=== PATIENT | female | born 1955 | race Hispanic/Latino ===

== ENCOUNTER 2020-06-08 08:14 | Emergency (ER) | payer OTHER, SELFPAY ==
[2020-06-08 08:17] VITALS: BP 147/84; PULSE 80; RESP 18; TEMP 36.3; O2SAT 96
--- NOTE | 2020-06-08 09:50 | ED.GENADULT ---
HPI - General Adult General Chief complaint: Back Pain/Injury Stated complaint: Back Pain x1 week Time Seen by Provider: 06/08/20 09:05 Related Data Home Medications Medication Instructions Recorded Confirmed sertraline 25 mg PO 06/08/20 Allergies Allergy/AdvReac Type Severity Reaction Status Date / Time No Known Allergies Allergy Verified 06/08/20 08:21 Course Vital Signs Vital signs: Vital Signs Temperature 36.3 C L 06/08/20 08:17 Pulse Rate 80 06/08/20 08:17 Respiratory Rate 18 06/08/20 08:17 Blood Pressure 147/84 H 06/08/20 08:17 Pulse Oximetry 96 06/08/20 08:17 Temperature 36.3 C L 06/08/20 08:17 Pulse Rate 80 06/08/20 08:17 Respiratory Rate 18 06/08/20 08:17 Blood Pressure 147/84 H 06/08/20 08:17 Pulse Oximetry 96 06/08/20 08:17 Medical Decision Making Vital Signs Vital Signs: Vital Signs Temperature 36.3 C L 06/08/20 08:17 Pulse Rate 80 06/08/20 08:17 Respiratory Rate 18 06/08/20 08:17 Blood Pressure 147/84 H 06/08/20 08:17 Pulse Oximetry 96 06/08/20 08:17 Temperature 36.3 C L 06/08/20 08:17 Pulse Rate 80 06/08/20 08:17 Respiratory Rate 18 06/08/20 08:17 Blood Pressure 147/84 H 06/08/20 08:17 Pulse Oximetry 96 06/08/20 08:17 Discharge Plan Discharge Clinical Impression: Herpes zoster Patient Disposition: Home, Self-Care Condition: Stable Instructions: Antibiotic Form, Shingles (ED) Prescriptions: New famciclovir 500 mg tablet 500 mg PO Q12H Qty: 14 RF: 0 lidocaine 5 % adhesive patch,medicated 1 patch topical DAILY Qty: 15 RF: 0 hydrocodone-acetaminophen [[place]] 5-325 mg tablet 1 tablet PO Q8H PRN (Reason: pain) Qty: 14 RF: 0 No Action sertraline 25 mg tablet 25 mg PO RF: 0 Follow-up/Referrals: Efren Johnson MD [Primary Care Provider] - Time of Disposition: 09:54
--- NOTE | 2020-06-08 09:54 | ED.GENADULT ---
HPI - General Adult General Chief complaint: Back Pain/Injury Stated complaint: Back Pain x1 week Time Seen by Provider: 06/08/20 09:05 Source: patient Mode of arrival: ambulatory Limitations: no limitations History of Present Illness HPI narrative: 65-year-old with no major medical problems here with complaints of right-sided back and chest pain. Patient states that started approximately 3 weeks ago been taking pain medication and muscle relaxer however she noticed erythematous rash on the back and front of her chest below the breast for past 1 day. She states that she never had this kind of pain in the past. Denies any fever or chills. No history of cough. Onset (ago): week(s) (3) Location: chest (right lower costal margin) Radiation: other (to mid chest) Severity: moderate Quality: sharp and constant Relieving factors: none Exacerbating factors: none Associated symptoms: denies other symptoms Related Data Home Medications Medication Instructions Recorded Confirmed sertraline 25 mg PO 06/08/20 Allergies Allergy/AdvReac Type Severity Reaction Status Date / Time No Known Allergies Allergy Verified 06/08/20 08:21 Review of Systems Review of Systems: All systems reviewed & are unremarkable except as noted in HPI and below Constitutional: Constitutional: Reports as per HPI Eyes: Eyes: Reports as per HPI ENT: Reports system reviewed and no additional complaints, except as documented Cardiovascular: Cardiovascular: Reports no additional cardiovascular complaints Gastrointestinal: Gastrointestinal: Reports no additional gastrointestinal complaints Genitourinary: Genitourinary: Reports no additional female genitourinary complaints Musculoskeletal: Musculoskeletal: Reports no additional musculoskeletal complaints Exam Narrative: Exam Narrative: GENERAL: Well-appearing, well-nourished, and in no acute distress. HEAD: Normocephalic, atraumatic. EYES: PERRLA and EOMI. ENT: Nares clear, no rhinorrhea or epistaxis. Mucous membranes moist. NECK: Supple. CHEST: Clear to auscultation. No respiratory distress. HEART: Regular rate and rhythm. No murmur heard. Normal peripheral pulses. ABDOMEN: Soft, nontender, nondistended, normal active bowel sounds. EXTREMITIES: Normal range of motion. No edema. SKIN: Warm, dry, erythematous rash present on the right intercostal space extending from infra scapular area to the right inframammary area NEURO: No focal deficits. Alert and oriented x3. PSYCH: Normal mood and affect. Course Vital Signs Vital signs: Vital Signs Temperature 36.3 C L 06/08/20 08:17 Pulse Rate 80 06/08/20 08:17 Respiratory Rate 18 06/08/20 08:17 Blood Pressure 147/84 H 06/08/20 08:17 Pulse Oximetry 96 06/08/20 08:17 Temperature 36.3 C L 06/08/20 08:17 Pulse Rate 80 06/08/20 08:17 Respiratory Rate 18 06/08/20 08:17 Blood Pressure 147/84 H 06/08/20 08:17 Pulse Oximetry 96 06/08/20 08:17 Medical Decision Making MDM Narrative Medical decision making narrative: Inform patient about the diagnosis, advised her to take pain medication and antiviral medication as as prescribed also recommended to follow-up with her primary doctor. Vital Signs Vital Signs: Vital Signs Temperature 36.3 C L 06/08/20 08:17 Pulse Rate 80 06/08/20 08:17 Respiratory Rate 18 06/08/20 08:17 Blood Pressure 147/84 H 06/08/20 08:17 Pulse Oximetry 96 06/08/20 08:17 Temperature 36.3 C L 06/08/20 08:17 Pulse Rate 80 06/08/20 08:17 Respiratory Rate 18 06/08/20 08:17 Blood Pressure 147/84 H 06/08/20 08:17 Pulse Oximetry 96 06/08/20 08:17 Discharge Plan Discharge Clinical Impression: Herpes zoster Qualifiers: Herpes zoster complications: without complications Qualified Code(s): B02.9 - Zoster without complications Patient Disposition: Home, Self-Care Condition: Stable Instructions: Antibiotic Form, Shingles (ED) Prescriptions: New famciclovir 50
[2020-06-08 10:15] VITALS: BP 150/81; PULSE 81; RESP 18; O2SAT 96
== END 2020-06-08 10:16 | disposition home or self-care (01) ==
PROVIDERS: Emergency Provider Family Medicine; PCP Hospitalist
DX: B02.9 Zoster without complications (principal)
CPT/HCPCS: 99283

== ENCOUNTER 2020-06-08 20:49 | Inpatient (IN) | payer OTHER, SELFPAY ==
--- NOTE | ~2020-06-08 | XR_ITS ---
EXAMINATION: XR chest 1V portable DATE: 06/09/2020 08:57 INDICATION: Viral syndrome. Headache. TECHNIQUE: A single frontal view of the chest was obtained. COMPARISON: None. FINDINGS: The chest demonstrates clear lungs without pneumonia, pleural effusion, or pneumothorax. Th e heart size is normal. IMPRESSION: 1. No acute cardiopulmonary disease. Reviewed, dictated and finalized at location A.
--- NOTE | ~2020-06-08 | CT_ITS ---
EXAMINATION: CT brain wo con DATE: 06/08/2020 21:37 INDICATION: Headache. TECHNIQUE: Computed tomography (CT) of the head was performed without intravenous contrast. The mA wa s adjusted according to patient size. Iterative reconstruction technique was employed. The dose-lengt h product was 681.00 mGy-cm. COMPARISON: None FINDINGS: There is no intracranial hemorrhage, acute infarction, or abnormal intracranial mass lesion . There are scattered areas of low attenuation in the cerebral white matter, which is within normal l imits for the patient's age. The ventricles are normal in size. The orbits are normal. The paranasal sinuses are clear. The mastoid air cells are normal. IMPRESSION: 1. Normal aging brain. Reviewed, dictated and finalized at location A. IMPRESSION: 1. Normal aging brain.
--- NOTE | ~2020-06-08 | CT_ITS ---
EXAMINATION: CT thoracic spine wo con DATE: 06/12/2020 13:17 INDICATION: Back pain. TECHNIQUE: Computed tomography (CT) of the thoracic spine was performed without intravenous contrast. Automated exposure control and iterative reconstruction technique were employed. The dose-length pro duct was 456.21 mGy-cm. COMPARISON: None FINDINGS: There is 10 degrees levoscoliosis of thoracic spine. Vertebral body heights are normal. The re is mildly decreased disc height at multiple levels in thoracic spine. There is moderately decrease d disc height at T5-T6, T6-T7, and T11-T12. There is severe cervical spondylosis. There is multilevel facet joint osteoarthritis, severe bilaterally at C7-T1 and on the right at T3-T4. There is mild rig ht neural foraminal stenosis at T3-T4 and T4-T5. There is mild central canal stenosis at T6-T7, T10-T 11, and T11-T12. IMPRESSION: 1. Moderate thoracic spondylosis and severe cervical spondylosis. 2. Thoracic dextroscoliosis. Reviewed, dictated and finalized at location A.
[2020-06-08 20:53] VITALS: BP 147/71; PULSE 94; RESP 18; TEMP 37.5; O2SAT 97
--- NOTE | 2020-06-08 21:15 | ED.GENADULT ---
HPI - General Adult General Chief complaint: Fever Stated complaint: shingles, fever began today Time Seen by Provider: 06/08/20 21:06 Source: patient History of Present Illness HPI narrative: Patient is a 65 y/o female complaining bilateral frontal headache starting several hours ago. She rates her pain as 9/10. She states that her headache is throbbing. She states that she had a fever of 101 at home. There is no alleviating or exacerbating factor with her headache. She has some neck pain that's worse with movement. She has some bilateral leg weakness, although she is able to move her legs and ambulate without assistance. She denies any cough, sore throat or dysuria. Of note, she was seen here earlier today for shingles and given antivirals. Related Data Home Medications Medication Instructions Recorded Confirmed sertraline 25 mg PO DAILY 06/08/20 06/09/20 Arthritis Pain Relief (ASA) 81 mg PO DAILY 06/09/20 06/09/20 Fish Oil 1,200 mg PO DAILY 06/09/20 06/09/20 Vitamin B-12 200 mg PO DAILY 06/09/20 06/09/20 calcium 900 mg PO BID 06/09/20 06/09/20 magnesium 400 mg PO DAILY 06/09/20 06/09/20 melatonin 5 mg PO HS 06/09/20 06/09/20 Allergies Allergy/AdvReac Type Severity Reaction Status Date / Time No Known Allergies Allergy Verified 06/08/20 08:21 Review of Systems Constitutional: Constitutional: Denies chills, Reports fever(s), Reports headache(s) and Denies weakness Eyes: Eyes: Denies blurry vision ENT: Reports headache(s) and Denies neck pain Cardiovascular: Cardiovascular: Denies chest pain and Denies dyspnea Respiratory: Respiratory: Denies cough and Denies dyspnea Gastrointestinal: Gastrointestinal: Denies abdominal pain, Denies diarrhea, Denies nausea and Denies vomiting Genitourinary: Genitourinary: Denies hematuria and Denies dysuria Musculoskeletal: Musculoskeletal: Denies back pain and Denies neck pain Integumentary/Breasts: Skin/Breast: Reports lesions (rigth upper back) Neurologic: Reports headache(s) and Denies weakness PMFSH Past Medical History Medical History (Updated 06/09/20 @ 12:33 by Ameena Mcgill MD) Depression Family History Family History Father Acute myocardial infarction Prostate carcinoma Other Diabetes mellitus Social History Social History Smoking status: Former smoker Alcohol intake: current Drinks per week: 0 Substance use: never Substance use type: does not use Gender identity (if verbalized by the patient): Female Sexual Orientation (if Verbalized by the Patient): Straight or Heterosexual Spiritual care concerns: No Exam Const: General: no acute distress and well developed Orientation/consciousness: oriented to person, oriented to place, oriented to time and patient oriented x3 HENMT: Head: normocephalic Ears: external ears normal General nose exam: Normal external nose present Eyes: General: appearance normal, both eyes and all related structures Conjunctivae: conjunctivae normal Neck: Neck: normal visual inspection and full ROM (increased neck with ROM) Chest: Chest palpation & inspection: normal inspection of the chest and no tenderness Resp: Effort & Inspection: normal respiratory effort Auscultation: clear to auscultation bilaterally Cardio: Rate: regular rate Rhythm: regular rhythm GI: GI Palp: No abdominal tenderness and Yes Soft to palpation Skin: General skin exam: normal color and turgor normal Rashes: rashes noted (right upper back suggesting shingles) Neuro: General: oriented to person, oriented to place, oriented to time and patient oriented x3 Cognition (Neuro): normal cognition Motor exam (neuro): 5/5 motor strength present throughout Sensory Exam: normal sensation Extrem: General: normal to inspection, full ROM and no pedal edema Psych: Appearance: grossly normal Mental Status: mental status grossly nor
[2020-06-08 21:23] LABS: Basophils Absolute Auto 0.1 K/mm3 (0.0-0.1); Basophils Percent Auto 0.5 % (0.2-1.2); Eosinophils Absolute Auto 0.1 K/mm3 (0-0.3); Eosinophils Percent Auto 1.2 % (0-4.4); Hematocrit 37.4 % (37.0-47.0); Hemoglobin 12.5 g/dL (12.0-15.0); Immature Granulocyte Absolute 0.03 K/mm3 (0.00-0.031); Immature Granulocyte Percent A 0.3 % (0-0.5); Lymphocytes Absolute Auto 1.39 K/mm3 (0.9-3.2); Lymphocytes Percent Auto 15.2 % (18.3-44.2); Mean Corpuscular HGB Conc 33.4 g/dl (32-36); Mean Corpuscular Hemoglobin 31.4 pg (26-34); Mean Platelet Volume 10.6 fl (7.4-10.4); Monocytes Absolute Auto 0.9 K/mm3 (0.1-0.6); Monocytes Percent Auto 10.1 % (2.6-8.5); Neutrophils Absolute Auto 6.7 K/mm3 (1.3-6.7); Neutrophils Percent Auto 72.7 % (45.5-73.1); Platelet Count Result 258 k/mm3 (150-375); Red Blood Count 3.98 M/mm3 (4.2-5.4); Red Cell Distribution Width 12.6 % (11.5-14.5); White Blood Count 9.2 K/mm3 (4.5-10.0)
[2020-06-08 21:43] LABS: Anion Gap 6 mmol/L (8-16); Blood Urea Nitrogen 17 mg/dL (7-17); Calcium 9.4 mg/dL (8.4-10.2); Carbon Dioxide 29 mmol/L (22-30); Chloride 102 mmol/L (98-107); Estimated CRCL calculation 48 ml/min; Estimated Glomerular Filt Rate 56; Glucose 116 mg/dL (65-105); Sodium 137 mmol/L (137-145)
[2020-06-08] MEDS: fentaNYL CITRATE INJ (*CRX) 100 MCG/2 ML VIAL 50 MCG IV PUSH (22:06)
[2020-06-08 22:13] VITALS: BP 137/78; PULSE 74; RESP 16; O2SAT 98
[2020-06-08 22:15] LABS: Add Urine Microscopic? YES; Appearance Urine Clear (Clear); Bilirubin Urine Negative (Negative); Blood Urine 1+ (Negative); Color Urine Colorless (Yellow); Glucose Urine UA Negative (Negative); Ketones Urine Negative (Negative); Leukocyte Esterase Ur Trace LEU/UL (Negative); Nitrate Urine Negative (Negative); Protein Urine Negative (Negative); RBC Urine 0-2 /hpf (0-2); Specific Grav Ur 1.005 (1.001-1.035); Urobilinogen Urine Negative mg/dL (<2.0); WBC Urine 0-3 /hpf
[2020-06-08 22:46] LABS: Glucose CSF 55 mg/dL (40-70); Total Protein CSF 111 mg/dL (12-60)
[2020-06-08 23:40] VITALS: BP 111/57; PULSE 72; RESP 16; O2SAT 100
[2020-06-08] MEDS: KETOROLAC 30 MG/ML VIAL (*BKC) 15 MG IV PUSH (23:40)
[2020-06-08 23:49] LABS: Appearance CSF Clear (Clear); CSF source CSF; Color CSF Colorless (Colorless); Nucleated Cell CSF 172 /uL (0-5); Red Blood Cell CSF 3 (0-2)
[2020-06-08 23:50] LABS: Lymphocytes CSF 71 % (40-80); Monocytes CSF 28 % (15-45)
[2020-06-09] MEDS: ACYCLOVIR SODIUM IVPB 700 MG in DEXTROSE 5% IN WATER 250 ML 266 MG IVPB ×3 (00:37→17:28)
[2020-06-09 01:03] VITALS: BP 117/64; PULSE 72; RESP 16; TEMP 36.7; O2SAT 100
[2020-06-09 01:30] VITALS: BP 130/58; PULSE 86; RESP 18; TEMP 38.3; O2SAT 98; BMI 24.3
--- NOTE | 2020-06-09 01:32 | PM.IMHP ---
H&P: HPI History of Present Illness Date/Time: 06/09/20 01:32 Chief complaint: headache Narrative: This is a pleasant 65-year-old female who presented to the hospital earlier yesterday a complaint of a red painful rash on her right flank that started yesterday and extending from her right flank to underneath her right breast. The patient had had right flank discomfort ever since she did some painting a few weeks ago. She was diagnosed with herpes zoster yesterday and sent home and told to come back if she started to developed any other symptoms. At home she developed a fever of 101? F and a severe bilateral frontal headache. She denies any significant nausea or vomiting. she also denies any significant neck stiffness although she has had some mild neck tenderness with movement. On further questioning she denies any other symptoms such as cough, shortness of breath, chest pain, abdominal pain, diarrhea, sore throat, dysuria, hematuria, or rectal bleeding. The patient was evaluated emergency room and underwent a lumbar puncture which demonstrated elevated nucleated cells as well as elevated protein levels. The patient was treated in the emergency room with empirical antibiotics to cover for meningitis as well as acyclovir. Review of Systems Review of Systems: All systems reviewed & are unremarkable except as noted in HPI and below PMFSH Past Medical History Medical History Depression Surgical History Surgical History (Updated 06/11/20 @ 04:35 by Leroy Man MD) History of appendectomy Family History Family History Father Acute myocardial infarction Prostate carcinoma Other Diabetes mellitus Social History Social History Smoking status: Former smoker Alcohol intake: current Drinks per week: 0 Substance use: never Substance use type: does not use Gender identity (if verbalized by the patient): Female Sexual Orientation (if Verbalized by the Patient): Straight or Heterosexual Spiritual care concerns: No Meds Home Medications and Allergies Home Medications Medication Instructions Recorded Confirmed Type famciclovir 500 mg PO Q12H #14 tablet 06/08/20 06/09/20 Rx hydrocodone-acetaminophen [[place]] 1 tablet PO Q8H PRN #14 tablet 06/08/20 06/09/20 Rx lidocaine 1 patch TOPICAL DAILY #15 ea 06/08/20 06/09/20 Rx sertraline 25 mg PO DAILY 06/08/20 06/09/20 History Arthritis Pain Relief (ASA) 81 mg PO DAILY 06/09/20 06/09/20 History Fish Oil 1,200 mg PO DAILY 06/09/20 06/09/20 History Vitamin B-12 200 mg PO DAILY 06/09/20 06/09/20 History calcium 900 mg PO BID 06/09/20 06/09/20 History magnesium 400 mg PO DAILY 06/09/20 06/09/20 History melatonin 5 mg PO HS 06/09/20 06/09/20 History Allergies Allergy/AdvReac Type Severity Reaction Status Date / Time No Known Allergies Allergy Verified 06/08/20 08:21 Vital Signs Vital Signs - 24 hr 06/08/20 20:53 06/08/20 22:13 06/08/20 23:40 Temperature 37.5 C Pulse Rate 94 74 72 Respiratory Rate 18 16 16 Blood Pressure 147/71 H 137/78 111/57 L Pulse Oximetry 97 98 100 06/09/20 01:03 Temperature 36.7 C Pulse Rate 72 Respiratory Rate 16 Blood Pressure 117/64 Pulse Oximetry 100 Exam Const: General: cooperative, alert, awake and ill appearing Nutritional Appearance: well nourished Orientation/consciousness: patient oriented x3 HENMT: Head: normal to inspection General nose exam: Normal external nose present Face and sinus: normal facial exam Mouth: Yes Normal oral and palatal mucosa present and Yes oropharynx normal Eyes: Pupils: Equal, round and reactive pupils present EOM: EOMs intact bilaterally Neck: Neck: supple, no JVD and other ( Brudzinski sign is negative) Thyroid: thyroid normal Lymphatic: lymphadenopathy not noted Resp: Effort & Inspection: normal respi
--- NOTE | 2020-06-09 02:02 | ADMGEN ---
This patient, Lori Munguia, was admitted to [facility] Surg Room 323-01. Patient/family oriented to hospital policies and general routines including ID bracelet, bed and alarms, visiting hours, pain management, procedures, bathroom and other care routines, personal items, smoking policy, room service/diet, and visiting hours. Valuables list has been completed. Information on how to activate the Rapid Response Team has been discussed. Patient/Family are encouraged to report perceived risks to care and to ask questions if they do not understand what they are told or what they should do.
[2020-06-09] MEDS: DEXAMETHASONE SOD PHOS INJ 4 MG/ML VIAL 10.5 MG IV PUSH ×3 (02:55→19:52)
[2020-06-09] MEDS: AMPICILLIN 2 GM/NS 100 ML 2 GM/100 ML BAG IVPB ×2 (02:56→14:37)
[2020-06-09] MEDS: polyethylene glycoL 3350 17 GM POWD.PACK PO (03:00)
[2020-06-09] MEDS: MELATONIN 5 MG TABLET PO ×2 (03:00→21:18)
[2020-06-09 04:00] VITALS: BP 105/49; PULSE 80; RESP 18; TEMP 36.9; O2SAT 97
[2020-06-09 06:23] LABS: Basophils Percent Auto 0.3 % (0.2-1.2); Eosinophils Percent Auto 0.3 % (0-4.4); Hemoglobin 12.5 g/dL (12.0-15.0); Immature Granulocyte Absolute 0.01 K/mm3 (0.00-0.031); Immature Granulocyte Percent A 0.2 % (0-0.5); Lymphocytes Absolute Auto 0.67 K/mm3 (0.9-3.2); Mean Corpuscular HGB Conc 32.9 g/dl (32-36); Mean Corpuscular Hemoglobin 30.7 pg (26-34); Mean Corpuscular Volume 93.4 fl (80-100); Mean Platelet Volume 10.5 fl (7.4-10.4); Monocytes Absolute Auto 0.2 K/mm3 (0.1-0.6); Monocytes Percent Auto 3.8 % (2.6-8.5); Neutrophils Absolute Auto 5.1 K/mm3 (1.3-6.7); Neutrophils Percent Auto 84.4 % (45.5-73.1); Platelet Count Result 263 k/mm3 (150-375); Red Blood Count 4.07 M/mm3 (4.2-5.4); Red Cell Distribution Width 12.7 % (11.5-14.5); White Blood Count 6.1 K/mm3 (4.5-10.0)
[2020-06-09 06:41] LABS: Anion Gap 9 mmol/L (8-16); Blood Urea Nitrogen 17 mg/dL (7-17); Calcium 9.3 mg/dL (8.4-10.2); Carbon Dioxide 27 mmol/L (22-30); Chloride 101 mmol/L (98-107); Estimated CRCL calculation 53 ml/min; Estimated Glomerular Filt Rate > 60; Glucose 118 mg/dL (65-105); Potassium 4.1 mmol/L (3.4-5.0); Sodium 137 mmol/L (137-145)
[2020-06-09 08:00] VITALS: BP 116/72; PULSE 88; RESP 18; TEMP 37.1; O2SAT 97
[2020-06-09] MEDS: ASPIRIN 81 MG CHEWABLE TABLET PO (09:10)
[2020-06-09] MEDS: CYANOCOBALAMIN 250 MCG TABLET PO (09:11)
[2020-06-09] MEDS: CALCIUM CARBONATE (OSCAL) 500 MG TABLET 1000 MG PO ×2 (09:12→17:34)
[2020-06-09] MEDS: LIDOCAINE 5% PATCH 1 PATCH TOPICAL (09:12)
[2020-06-09] MEDS: SERTRALINE HCL 25 MG TABLET PO (09:18)
[2020-06-09 12:00] VITALS: BP 140/71; PULSE 83; RESP 18; TEMP 36.7; O2SAT 96
--- NOTE | 2020-06-09 12:45 | PM.IMPN ---
Progress Note: A&P Assessment and Plan (1) Meningitis: Code(s): G03.9 - Meningitis, unspecified Status: Acute Assessment and Plan: Suspect viral meningitis with VZV likely source. 06/04 started with right trunk pain. 06/08 morning she noticed rash to right trunk under right breast. It was very painful so she proceeded to ED 06/08. She was diagnosed with Shingles in the ED and discharged with oral famciclovir. Once she returned home from ED, she developed 101F fever and severe bilateral frontal headache with neck stiffness and returned to ED. Empirically started on IV acyclovir, ampicillin, vancomycin, Rocephin from the ED. CSF studies are consistent with a viral meningitis based on pleocytosis, elevated protein, normal glucose. CT brain normal. CSF gram stain and culture pending. I have contacted lab x2 regarding adding a CSF viral culture and prioritizing VZV CSF PCR. Appreciate Dr Ruiz's input. He discontinued antibiotics and recommends continuing acyclovir (day 2 of 7), then to oral famciclovir. Bacterial meningitis not suspected. Also on dexamethasone, deescalate as appropriate. Overall she feels much improved. (2) Herpes zoster: Code(s): B02.9 - Zoster without complications Status: Acute Assessment and Plan: Continue Acicylovir and supportive care. Tylenol for pain. (3) Suspected 2019 novel coronavirus infection: Code(s): Z20.828 - Contact with and (suspected) exposure to other viral communicable diseases Status: Ruled-out Assessment and Plan: COVID negative 06/09. Discontinue isolation. Discussed with infection control who noted she does not need isolation for viral meningitis, thus will discontinue droplet isolation. Subjective Date/time seen: 06/09/20 12:00 Interval history: Ms. Munguia is a pleasant 65yo F admitted for suspected viral meningitis. Her pain to right trunk is bothering her, rates 6/10 severity at this time. She reports neck pain and stiffness is improved. Headache still present but much improved. She denies nausea or vomiting and has tolerated breakfast well. She denies any chest pain or shortness of breath. Review of Systems Review of Systems: All systems reviewed & are unremarkable except as noted in HPI and below Exam Narrative: Exam Narrative: General: Female resting comfortably sitting up in bed in no acute distress. Neck: Supple, she reports pulling stiffness sensation down midline neck/T-spine with active neck flexion but Kernig and Brudzinski signs are negative. HEENT: Normocephalic, EOMI, PERRL, oral mucosa moist. Cardiovascular: Rate and rhythm are regular. Respiratory: Lungs clear to auscultation all gerard. Non-labored breathing. Tolerating room air. Abdomen/Trunk: Soft, non-tender, non-distended, bowel sounds present. Around 5 to 7 scattered erythematous lesions to the right back and under right breast around the T6 dermatome - not fluid filled, blistered or weeping yet. Extremities: Peripheral pulses intact. No edema. Neuro: Alert and oriented. [employer] strength, upper and lower extremity strength is appropriate and symmetric bilaterally. No focal neurological deficits. Speech is clear. Objective Data Vital Signs Vital Signs: Last Vital Signs Temp 98.0 F 06/09/20 12:00 Pulse 83 06/09/20 12:00 Resp 18 06/09/20 12:00 BP 140/71 06/09/20 12:00 Pulse Ox 96 06/09/20 12:00 Intake/Output Intake/Output: Intake & Output 06/06/20 06/07/20 06/08/20 06/09/20 23:59 23:59 23:59 23:59 Intake Total 714 Output Total 400 Balance 314 Meds/Results Medications: Active Medications Generic Name Dose Route Start Last Admin Trade Name Freq PRN Reason Stop Dose Admin Acetaminophen 650 mg 06/09/20 01:44 Acetaminophen 325 Mg Tablet PO Q4H PRN Mild Pain (1-3) or Feve
[2020-06-09 14:08] LABS: SARS-CoV-2 RNA PCR Negative
--- NOTE | 2020-06-09 16:43 | WPDNEURCNPN ---
Assessment and Plan Assessment and plan (1) Herpes zoster: Qualifiers: Herpes zoster complications: with nervous system involvement Herpes zoster neurologic complication detail: meningitis Qualified Code(s): B02.1 - Zoster meningitis Code(s): B02.9 - Zoster without complications Status: Acute (2) Suspected 2019 novel coronavirus infection: Code(s): Z20.828 - Contact with and (suspected) exposure to other viral communicable diseases Status: Acute (3) Meningitis: Code(s): G03.9 - Meningitis, unspecified Status: Acute Additional Plan continue treatment as such until all cultures finished Consult date: 06/09/20 Time Seen: 16:43 HPI: Lori Munguia is a 65 year old femaleAdmitted to the hospital with a complainst of red painful rash on her right flank of [id number] duration including the extension to underneath her right breast ,she had been diagnosed with herpes zoster yesterday and sent home with instruction to come back if any unusual problem arises. She noted becming febrile while at home, developed the frontal headaches but no nausea or vomiting or neck stiffness. she underwent spinal tap in the emergency room she also had an additional history of depression. CBC revealed no leukocytosis, hemoglobin 12.5 platelet count 263 normal electrolytes West Nile pending COVID SARS-CoV-2 negative cultures pending, white blood cells seen in CSF on Gram stains, patient was started on acyclovir along with the ampicillin and ceftriaxone and vanc. Review of Systems Review of Systems: All systems reviewed & are unremarkable except as noted in HPI and below PMFSH Past Medical History Medical History (Updated 06/09/20 @ 12:33 by Ameena Mcgill MD) Depression Family History Family History Father Acute myocardial infarction Prostate carcinoma Other Diabetes mellitus Social History Social History Smoking status: Former smoker Alcohol intake: current Drinks per week: 0 Substance use: never Substance use type: does not use Gender identity (if verbalized by the patient): Female Sexual Orientation (if Verbalized by the Patient): Straight or Heterosexual Spiritual care concerns: No Meds Home Medications and Allergies Home Medications Medication Instructions Recorded Confirmed Type famciclovir 500 mg PO Q12H #14 tablet 06/08/20 06/09/20 Rx hydrocodone-acetaminophen [[place]] 1 tablet PO Q8H PRN #14 tablet 06/08/20 06/09/20 Rx lidocaine 1 patch TOPICAL DAILY #15 ea 06/08/20 06/09/20 Rx sertraline 25 mg PO DAILY 06/08/20 06/09/20 History Arthritis Pain Relief (ASA) 81 mg PO DAILY 06/09/20 06/09/20 History Fish Oil 1,200 mg PO DAILY 06/09/20 06/09/20 History Vitamin B-12 200 mg PO DAILY 06/09/20 06/09/20 History calcium 900 mg PO BID 06/09/20 06/09/20 History magnesium 400 mg PO DAILY 06/09/20 06/09/20 History melatonin 5 mg PO HS 06/09/20 06/09/20 History Allergies Allergy/AdvReac Type Severity Reaction Status Date / Time No Known Allergies Allergy Verified 06/08/20 08:21 Vital Signs Vital Signs - 24 hr 06/08/20 20:53 06/08/20 22:13 06/08/20 23:40 Temperature 37.5 C Pulse Rate 94 74 72 Respiratory Rate 18 16 16 Blood Pressure 147/71 H 137/78 111/57 L Pulse Oximetry 97 98 100 06/09/20 01:03 06/09/20 01:30 06/09/20 04:00 Temperature 36.7 C 38.3 C H 36.9 C Pulse Rate 72 86 80 Respiratory Rate 16 18 18 Blood Pressure 117/64 130/58 L 105/49 L Pulse Oximetry 100 98 97 06/09/20 08:00 06/09/20 12:00 Temperature 37.1 C 36.7 C Pulse Rate 88 83 Respiratory Rate 18 18 Blood Pressure 116/72 140/71 Pulse Oximetry 97 96 Exam Narrative: Exam Narrative: examination revealed her to be awake alert cooperative, head normocephalic with no cranial bruit, ear nose throat examination normal,, respirations normal with no rhonchi or crepitations, heart
--- NOTE | 2020-06-09 16:57 | WPDINFPN2 ---
Progress Note: A&P Assessment and Plan (1) Meningitis: Code(s): G03.9 - Meningitis, unspecified Status: Acute Assessment and Plan: VZV meningitis REC ACV # 2 / 7, then oral famciclovir. Check for immune competency Subjective Date/time seen: 06/09/20 16:57 Objective Data Vital Signs Vital Signs: Vital Signs - 24 hr 06/08/20 20:53 06/08/20 22:13 06/08/20 23:40 Temperature 37.5 C Pulse Rate 94 74 72 Respiratory Rate 18 16 16 Blood Pressure 147/71 H 137/78 111/57 L Pulse Oximetry 97 98 100 06/09/20 01:03 06/09/20 01:30 06/09/20 04:00 Temperature 36.7 C 38.3 C H 36.9 C Pulse Rate 72 86 80 Respiratory Rate 16 18 18 Blood Pressure 117/64 130/58 L 105/49 L Pulse Oximetry 100 98 97 06/09/20 08:00 06/09/20 12:00 Temperature 37.1 C 36.7 C Pulse Rate 88 83 Respiratory Rate 18 18 Blood Pressure 116/72 140/71 Pulse Oximetry 97 96 Intake/Output Intake/Output: Intake & Output 06/06/20 06/07/20 06/08/20 06/09/20 23:59 23:59 23:59 23:59 Intake Total 1678 Output Total 400 Balance 1278 Meds/Results Medications: Active Medications Generic Name Dose Route Start Last Admin Trade Name Freq PRN Reason Stop Dose Admin Acetaminophen 650 mg 06/09/20 01:44 Acetaminophen 325 Mg Tablet PO Q4H PRN Mild Pain (1-3) or Fever Aspirin 81 mg 06/09/20 08:00 06/09/20 09:10 Aspirin 81 Mg Chewable Tablet PO 81 mg DAILY@0800 MARGARITA Administration Calcium Carbonate 1,000 mg 06/09/20 09:00 06/09/20 09:12 Calcium Carbonate (Oscal) 500 Mg Tablet PO 07/09/20 09:01 1,000 mg BID MARGARITA Administration Cyanocobalamin 250 mcg 06/09/20 09:00 06/09/20 09:11 Cyanocobalamin 250 Mcg Tablet PO 250 mcg QAM MARGARITA Administration Dexamethasone Sodium Phosphate 10.5 mg 06/09/20 02:00 06/09/20 16:30 Dexamethasone Sod Phos Inj 4 Mg/Ml Vial IV PUSH 06/11/20 02:01 Not Given Q6H MARGARITA Acyclovir Sodium 700 mg/ 264 mls @ 266 mls/hr 06/09/20 09:00 06/09/20 10:00 Dextrose IVPB Infused Q8H MARGARITA Infusion Lidocaine 1 patch 06/09/20 09:00 06/09/20 09:12 Lidocaine 5% Patch TOPICAL 1 patch DAILY MARGARITA Administration Melatonin 5 mg 06/09/20 02:00 06/09/20 03:00 Melatonin 5 Mg Tablet PO 5 mg HS MARGARITA Administration Sertraline HCl 25 mg 06/09/20 09:00 06/09/20 09:18 Sertraline Hcl 25 Mg Tablet PO 25 mg DAILY MARGARITA Administration Radiology Results: ITS Impressions Head CT 06/09/20 07:01 IMPRESSION: 1. Normal aging brain. Chest X-Ray 06/09/20 08:59 IMPRESSION: 1. No acute cardiopulmonary disease. Labs Labs: Laboratory Results - last 24 hr 06/08/20 06/08/20 06/08/20 21:18 21:18 22:05 WBC 9.2 RBC 3.98 L Hgb 12.5 Hct 37.4 MCV 94.0 MCH 31.4 MCHC 33.4 RDW 12.6 Plt Count 258 MPV 10.6 H Immature Gran % (Auto) 0.3 Neut % (Auto) 72.7 Lymph % (Auto) 15.2 L [place] % (Auto) 10.1 H Eos % (Auto) 1.2 Baso % (Auto) 0.5 Lymph # (Auto) 1.39 [place] # (Auto) 0.9 H Eos # (Auto) 0.1 Baso # (Auto) 0.1 Abs Immat Gran (auto) 0.03 Absolute Neuts (auto) 6.7 Absolute Nucleated RBC 0.0 Nucleated RBC % 0.0 Sodium 137 Potassium 4.0 Chloride 102 Carbon Dioxide 29 Anion Gap 6 L BUN 17 Creatinine 1.00 Estim Creat Clear Calc 48 Estimated GFR 56 L Glucose 116 H Calcium 9.4 Urine Color Colorless Urine Appearance Clear Urine pH 7.0 Ur Specific [place] 1.005 Urine Protein Negative Urine Glucose (UA) Negative Urine Ketones Negative Ur Blood (Man) 1+ H Urine Nitrate Negative Urine Bilirubin Negative Urine Urobilinogen Negative Leukocyte Esterase Rfl Trace H Urine RBC 0-2 Urine WBC 0-3 CSF Source CSF Appearance CSF Color CSF RBC CSF Tot Nucleated Cells CSF Lymphocytes CSF Monocytes CSF Eosinophils CSF Glucose CSF Total Protein SARS-CoV-2 RNA (
[2020-06-09] MEDS: diphenhydrAMINE HCl CAP 25 MG CAPSULE PO (19:52)
[2020-06-09 22:00] VITALS: BP 117/61; PULSE 74; RESP 20; TEMP 36.7; O2SAT 98
--- NOTE | 2020-06-09 22:59 | CONS_ITS ---
DATE OF CONSULTATION: 06/09/2020 REASON FOR CONSULTATION: Meningitis, viral. HISTORY OF PRESENT ILLNESS: A 65-year-old female, previously healthy. She has been on no recent immunosuppressants nor antimicrobials for any purpose. She began feeling ill about 4 days before admission with left CVA region pain radiating to the right upper quadrant. She then noted a rash on the day of admission in the same area and she was seen in the emergency room here in the morning. She was diagnosed with herpes zoster and sent home with famciclovir. She took a single dose, but returned to the emergency room later than the evening with new onset of severe headache along with fever into the mid 38 range, then was admitted. She has been given ceftriaxone, ampicillin, vancomycin, and acyclovir after lumbar puncture. Her headache is considerably improved. No further fever. No chills. No sweats. She has had no previous spinal taps for any purpose. No previous cranial brain surgery. No previous spinal surgery. She has had no ill household contacts and she does not recall if she had primary varicella as a child. ALLERGIES: NONE KNOWN. HABITS: Ex-smoker. No alcohol. No illicit drugs. PRESENT MEDICATIONS: As above. FAMILY HISTORY: [place], prostate cancer, diabetes. PAST MEDICAL HISTORY: No prior operations, past depression. REVIEW OF SYSTEMS: A 14-point review otherwise negative. SOCIAL HISTORY: Born in [facility] to [place] parents and moved to [place] after about a year and half of age, lived there for some time, and then in her 20s [place] has been here since. 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 A granddaughter with whom she lives unfortunately has recently been had a suicide attempt and the granddaughter is 17 years old. The patient is . PHYSICAL EXAMINATION: GENERAL: This is a middle-aged female, who appears younger than her actual age, in no acute distress. VITAL SIGNS: 38.3 early this morning, otherwise afebrile; 83; 18; 140/71; 96%. SKIN: She has erythematous macules and papules over the right lower chest wall, posterior and anterior. No vesicles are seen. There is mild cutaneous tenderness. No rashes nor vesicles elsewhere. NODES: No cervical, submandibular adenopathy. EENT: Conjunctivae are normal. No injection. No discharge. The paranasal sinuses without abnormality. Oropharynx, oral mucosa are clear. No vesicles. NECK: Without meningismus, mass, tenderness, thyromegaly. LUNGS: Clear to auscultation and percussion. CARDIAC: Regular rate and rhythm. No murmur, gallop, or rub. ABDOMEN: Nontender, soft. No organomegaly. No masses. EXTREMITIES: No clubbing, cyanosis, edema. Well perfused. NEUROLOGIC: She is awake, alert, oriented, appropriate, and appears comfortable. LABORATORY DATA: White count was 9.2, now 6.1, hemoglobin 12.5, platelets are 263, differential shows a minimal left shift. Chemistry panel normal except for glucose of 118. Urinalysis, no evidence of infection. CSF: 3 red cells, 172 white cells, 71% lymphocytes, 28% monos, 1% eosinophils. Glucose 55, protein 111. Other studies pending. Finch virus assay nonreactive. Gram stain, a few white cells, no organisms seen. Cultures, no growth after short incubation. Blood cultures in process. RADIOLOGY: CT of the brain normal. Chest x-ray normal. ASSESSMENT: 1. Fever and headache due to aseptic meningitis. I suspect varicella zoster virus is the underlying cause. Less likely would be HSV 1 or 2, echo virus, enterovirus, human immunodeficiency virus, dengue, finch virus. I also doubt bacterial, fungal disease, and I doubt mycobacterial infection. She is presently improved and no complications. 2. Skin rash. I agree
[2020-06-10] MEDS: ACYCLOVIR SODIUM IVPB 700 MG in DEXTROSE 5% IN WATER 250 ML 250 MG IVPB ×2 (01:12→09:07)
[2020-06-10] MEDS: DEXAMETHASONE SOD PHOS INJ 4 MG/ML VIAL 10.5 MG IV PUSH ×4 (01:12→20:04)
[2020-06-10 06:00] VITALS: BP 109/56; PULSE 73; RESP 20; TEMP 36.6; O2SAT 99
[2020-06-10 06:58] LABS: Basophils Percent Auto 0.2 % (0.2-1.2); Hematocrit 36.4 % (37.0-47.0); Hemoglobin 12.1 g/dL (12.0-15.0); Immature Granulocyte Absolute 0.06 K/mm3 (0.00-0.031); Immature Granulocyte Percent A 0.5 % (0-0.5); Lymphocytes Absolute Auto 0.93 K/mm3 (0.9-3.2); Lymphocytes Percent Auto 7.1 % (18.3-44.2); Mean Corpuscular HGB Conc 33.2 g/dl (32-36); Mean Corpuscular Volume 93.3 fl (80-100); Mean Platelet Volume 10.9 fl (7.4-10.4); Monocytes Absolute Auto 0.5 K/mm3 (0.1-0.6); Monocytes Percent Auto 3.9 % (2.6-8.5); Neutrophils Absolute Auto 11.6 K/mm3 (1.3-6.7); Neutrophils Percent Auto 88.3 % (45.5-73.1); Platelet Count Result 281 k/mm3 (150-375); Red Cell Distribution Width 12.8 % (11.5-14.5); White Blood Count 13.1 K/mm3 (4.5-10.0)
[2020-06-10 07:13] LABS: Anion Gap 7 mmol/L (8-16); Blood Urea Nitrogen 18 mg/dL (7-17); Calcium 9.6 mg/dL (8.4-10.2); Carbon Dioxide 32 mmol/L (22-30); Chloride 102 mmol/L (98-107); Estimated CRCL calculation 53 ml/min; Estimated Glomerular Filt Rate > 60; Glucose 153 mg/dL (65-105); Magnesium 2.3 mg/dL (1.6-2.3); Potassium 4.3 mmol/L (3.4-5.0); Sodium 141 mmol/L (137-145)
[2020-06-10 07:17] LABS: Immunoglobulin A 195 mg/dL (70-400); Immunoglobulin G 1161 mg/dL (700-1600); Immunoglobulin M 44 mg/dL (40-230)
[2020-06-10 08:00] VITALS: PULSE 73; RESP 20; O2SAT 99
[2020-06-10] MEDS: CYANOCOBALAMIN 250 MCG TABLET PO (09:08)
[2020-06-10] MEDS: ASPIRIN 81 MG CHEWABLE TABLET PO (09:08)
[2020-06-10] MEDS: LIDOCAINE 5% PATCH 1 PATCH TOPICAL (09:09)
[2020-06-10] MEDS: CALCIUM CARBONATE (OSCAL) 500 MG TABLET 1000 MG PO ×2 (09:09→17:41)
[2020-06-10] MEDS: SERTRALINE HCL 25 MG TABLET PO (09:15)
--- NOTE | 2020-06-10 12:00 | WPDNEUROPN ---
Progress Note: A&P Assessment and Plan (1) Herpes zoster: Qualifiers: Herpes zoster complications: with nervous system involvement Herpes zoster neurologic complication detail: meningitis Qualified Code(s): B02.1 - Zoster meningitis Code(s): B02.9 - Zoster without complications Status: Acute (2) Meningitis: Code(s): G03.9 - Meningitis, unspecified Status: Acute Additional Plan stable Review of Systems Review of Systems: All systems reviewed & are unremarkable except as noted in HPI and below Exam Narrative: Exam Narrative: unchanged Objective Data Vital Signs Vital Signs: Vital Signs - 24 hr 06/09/20 22:00 06/10/20 06:00 06/10/20 08:00 Temperature 36.7 C 36.6 C Pulse Rate 74 73 73 Respiratory Rate 20 20 20 Blood Pressure 117/61 109/56 L Pulse Oximetry 98 99 99 Intake/Output Intake/Output: Intake & Output 06/07/20 06/08/20 06/09/20 06/10/20 23:59 23:59 23:59 23:59 Intake Total 5014 1214 Output Total 2900 1100 Balance 2114 114 Meds/Results Medications: Active Medications Generic Name Dose Route Start Last Admin Trade Name Freq PRN Reason Stop Dose Admin Acetaminophen 650 mg 06/09/20 18:13 Acetaminophen 325 Mg Tablet PO Q4H PRN Pain Aspirin 81 mg 06/09/20 08:00 06/10/20 09:08 Aspirin 81 Mg Chewable Tablet PO 81 mg DAILY@0800 MARGARITA Administration Calcium Carbonate 1,000 mg 06/09/20 09:00 06/10/20 09:09 Calcium Carbonate (Oscal) 500 Mg Tablet PO 07/09/20 09:01 1,000 mg BID MARGARITA Administration Cyanocobalamin 250 mcg 06/09/20 09:00 06/10/20 09:08 Cyanocobalamin 250 Mcg Tablet PO 250 mcg QAM MARGARITA Administration Dexamethasone Sodium Phosphate 10.5 mg 06/09/20 02:00 06/10/20 09:09 Dexamethasone Sod Phos Inj 4 Mg/Ml Vial IV PUSH 06/11/20 02:01 10.5 mg Q6H MARGARTIA Administration Diphenhydramine HCl 25 mg 06/09/20 18:10 06/09/20 19:52 Diphenhydramine Hcl Cap 25 Mg Capsule PO 25 mg Q6H PRN Administration Itching Acyclovir Sodium 700 mg/ 264 mls @ 266 mls/hr 06/09/20 09:00 06/10/20 09:07 Dextrose IVPB 250 mls/hr Q8H MARGARITA Administration Ibuprofen 600 mg 06/09/20 18:11 Ibuprofen 600 Mg Tablet PO Q4H PRN Pain Lidocaine 1 patch 06/09/20 09:00 06/10/20 09:09 Lidocaine 5% Patch TOPICAL 1 patch DAILY MARGARITA Administration Melatonin 5 mg 06/09/20 02:00 06/09/20 21:18 Melatonin 5 Mg Tablet PO 5 mg HS MARGARITA Administration Sertraline HCl 25 mg 06/09/20 09:00 06/10/20 09:15 Sertraline Hcl 25 Mg Tablet PO 25 mg DAILY MARGARITA Administration Radiology Results: ITS Impressions Head CT 06/09/20 07:01 IMPRESSION: 1. Normal aging brain. Chest X-Ray 06/09/20 08:59 IMPRESSION: 1. No acute cardiopulmonary disease. Labs Labs: Laboratory Results - last 24 hr 06/09/20 06/10/20 06/10/20 00:30 06:27 06:27 WBC 13.1 H RBC 3.90 L Hgb 12.1 Hct 36.4 L MCV 93.3 MCH 31.0 MCHC 33.2 RDW 12.8 Plt Count 281 MPV 10.9 H Immature Gran % (Auto) 0.5 Neut % (Auto) 88.3 H Lymph % (Auto) 7.1 L [place] % (Auto) 3.9 Eos % (Auto) 0.0 Baso % (Auto) 0.2 Lymph # (Auto) 0.93 [place] # (Auto) 0.5 Eos # (Auto) 0.0 Baso # (Auto) 0.0 Abs Immat Gran (auto) 0.06 H Absolute Neuts (auto) 11.6 H Absolute Nucleated RBC 0.0 Nucleated RBC % 0.0 Sodium Potassium Chloride Carbon Dioxide Anion Gap BUN Creatinine Estim Creat Clear Calc Estimated GFR Glucose Calcium Magnesium IgG 1161 IgA 195 IgM 44 SARS-CoV-2 RNA (RT-PCR) Negative 06/10/20 06:27 WBC RBC Hgb Hct MCV MCH MCHC RDW Plt Count MPV Immature Gran % (Auto) Neut % (Auto) Lymph % (Auto) [place] % (Auto) Eos % (Auto) Baso % (Auto) Lymph # (Auto) [place] # (Auto) Eos # (Auto) Baso # (Auto) Abs Immat Gran (auto) Absolute Neuts (auto) Ab
--- NOTE | 2020-06-10 13:43 | PM.IMPN ---
Progress Note: A&P Assessment and Plan (1) Meningitis: Code(s): G03.9 - Meningitis, unspecified Status: Acute Assessment and Plan: ------ suspect herpes zoster as a viral source. The patient has a zoster rash on the right upper flank with a Gram stain with no organisms and white blood cells as well as elevated glucose. The patient's symptoms have improved with acyclovir so we will continue with that. She is undergoing a lot of stress as her family member who lives with her just tried to commit suicide. all other antibiotics have been stopped, will continue to monitor micro results. Continue with Dr. hernandes so recommendations. She is currently day 3 of 7 (2) Herpes zoster: Code(s): B02.9 - Zoster without complications Status: Acute Assessment and Plan: ------Continue Acicylovir and supportive care. Tylenol for pain. (3) Anxiety and depression: Code(s): F41.9 - Anxiety disorder, unspecified; F32.9 - Major depressive disorder, single episode, unspecified Status: Acute Assessment and Plan: ----- stable, continue sertraline Time Spent With Patient Time with patient: 25 - 35 minutes Subjective Date/time seen: 06/10/20 13:43 Interval history: Pt is a 65-year-old female here for meningitis who was seen today. Patient states she is feeling so much better than she was on admission. She said her headache has gone and she has no neck stiffness. She had a little bit of itching and burning when her Decadron was pushed too fast but when the nurse this morning pushed it slower, she was fine. She has been eating and drinking well. Pt denies nausea, vomiting, fevers, chills, constipation, diarrhea, chest pain, sob, or abdominal pain. Review of Systems Review of Systems: All systems reviewed & are unremarkable except as noted in HPI and below Exam Narrative: Exam Narrative: General: Well developed well nourished patient in NAD HEENT: normocephalic Neck: supple Neuro: Alert and oriented x4 . Cranial nerves 2-12 intact. Equal strength the upper lower extremities 5/5. CV:RRR Resp:CTA Abd: Soft, non distended. No pain to palpation. Positive bowel sounds skin: Herpes zoster rash on her right upper flank. She also looks like she has some dermatitis to her left anti cubital crest Extremities: No swelling, erythema, or pain to palpation. Objective Data Vital Signs Vital Signs: Vital Signs - 24 hr 06/09/20 22:00 06/10/20 06:00 06/10/20 08:00 Temperature 98.1 F 97.8 F Pulse Rate 74 73 73 Respiratory Rate 20 20 20 Blood Pressure 117/61 109/56 L Pulse Oximetry 98 99 99 Intake/Output Intake/Output: Intake & Output 06/07/20 06/08/20 06/09/20 06/10/20 23:59 23:59 23:59 23:59 Intake Total 5014 1478 Output Total 2900 1100 Balance 2114 378 Meds/Results Medications: Active Medications Generic Name Dose Route Start Last Admin Trade Name Freq PRN Reason Stop Dose Admin Acetaminophen 650 mg 06/09/20 18:13 Acetaminophen 325 Mg Tablet PO Q4H PRN Pain Aspirin 81 mg 06/09/20 08:00 06/10/20 09:08 Aspirin 81 Mg Chewable Tablet PO 81 mg DAILY@0800 [facility] Administration Calcium Carbonate 1,000 mg 06/09/20 09:00 06/10/20 09:09 Calcium Carbonate (Oscal) 500 Mg Tablet PO 07/09/20 09:01 1,000 mg BID MARGARITA Administration Cyanocobalamin 250 mcg 06/09/20 09:00 06/10/20 09:08 Cyanocobalamin 250 Mcg Tablet PO 250 mcg QAM MARGARITA Administration Dexamethasone Sodium Phosphate 10.5 mg 06/09/20 02:00 06/10/20 09:09 Dexamethasone Sod Phos Inj 4 Mg/Ml Vial IV PUSH 06/11/20 02:01 10.5 mg Q6H MARGARITA Administration Diphenhydramine HCl 25 mg 06/09/20 18:10 06/09/20 19:52 Diphenhydramine Hcl Cap 25 Mg Capsule PO 25 mg Q6H PRN Administration Itching Acyclovir Sodium 700 mg/ 264 mls @ 266 mls/hr 06/09/20 09:00 06/10/20 10:10 Dextrose IVPB Infused Q8H [facility] Infusion Ibuprofen
[2020-06-10 14:00] VITALS: BP 136/76; PULSE 73; RESP 18; TEMP 36.7; O2SAT 100
[2020-06-10] MEDS: IBUPROFEN 600 MG TABLET PO (17:38)
[2020-06-10] MEDS: ACYCLOVIR SODIUM IVPB 700 MG in DEXTROSE 5% IN WATER 250 ML 266 MG IVPB (17:40)
[2020-06-10] MEDS: diphenhydrAMINE HCl CAP 25 MG CAPSULE PO (21:03)
[2020-06-10] MEDS: MELATONIN 5 MG TABLET PO (21:03)
[2020-06-10 22:00] VITALS: BP 130/75; PULSE 71; RESP 20; TEMP 36.8; O2SAT 99
[2020-06-10 22:15] VITALS: PULSE 88; RESP 20; O2SAT 96
[2020-06-11] MEDS: ACYCLOVIR SODIUM IVPB 700 MG in DEXTROSE 5% IN WATER 250 ML 250 MG IVPB (01:12)
[2020-06-11] MEDS: DEXAMETHASONE SOD PHOS INJ 4 MG/ML VIAL 10.5 MG IV PUSH (01:12)
[2020-06-11] MEDS: IBUPROFEN 600 MG TABLET PO ×2 (04:15→20:42)
[2020-06-11 06:00] VITALS: BP 133/73; PULSE 69; RESP 20; TEMP 37; O2SAT 97
[2020-06-11 06:27] LABS: Hematocrit 37.5 % (37.0-47.0); Hemoglobin 12.6 g/dL (12.0-15.0); Mean Corpuscular HGB Conc 33.6 g/dl (32-36); Mean Corpuscular Hemoglobin 31.3 pg (26-34); Mean Corpuscular Volume 93.3 fl (80-100); Mean Platelet Volume 10.7 fl (7.4-10.4); Platelet Count Result 303 k/mm3 (150-375); Red Blood Count 4.02 M/mm3 (4.2-5.4); White Blood Count 12.6 K/mm3 (4.5-10.0)
[2020-06-11 06:43] LABS: Alanine Aminotransferase 22 U/L (4-35); Alkaline Phosphatase 80 U/L (38-126); Anion Gap 5 mmol/L (8-16); Aspartate Amino Transferase 21 U/L (14-36); Bilirubin,Total 0.3 mg/dL (0.2-1.3); Blood Urea Nitrogen 21 mg/dL (7-17); Calcium 9.5 mg/dL (8.4-10.2); Carbon Dioxide 32 mmol/L (22-30); Chloride 100 mmol/L (98-107); Estimated CRCL calculation 59 ml/min; Estimated Glomerular Filt Rate > 60; Glucose 137 mg/dL (65-105); Potassium 4.7 mmol/L (3.4-5.0); Sodium 137 mmol/L (137-145)
[2020-06-11 07:37] LABS: HIV 1/2 Ab P24 Ag Result Negative (Negative)
[2020-06-11] MEDS: CYANOCOBALAMIN 250 MCG TABLET PO (08:08)
[2020-06-11] MEDS: SERTRALINE HCL 25 MG TABLET PO (08:08)
[2020-06-11] MEDS: CALCIUM CARBONATE (OSCAL) 500 MG TABLET 1000 MG PO ×2 (08:08→17:08)
[2020-06-11] MEDS: ASPIRIN 81 MG CHEWABLE TABLET PO (08:08)
[2020-06-11] MEDS: LIDOCAINE 5% PATCH 1 PATCH TOPICAL (08:08)
[2020-06-11] MEDS: ACYCLOVIR SODIUM IVPB 700 MG in DEXTROSE 5% IN WATER 250 ML 264 MG IVPB ×2 (08:09→17:08)
--- NOTE | 2020-06-11 10:55 | PM.IMPN ---
Progress Note: A&P Assessment and Plan (1) Meningitis: Code(s): G03.9 - Meningitis, unspecified Status: Acute Assessment and Plan: ------ suspect herpes zoster as a viral source. The patient has a zoster rash on the right upper flank with a Gram stain with no organisms and white blood cells as well as elevated glucose. The patient's symptoms have improved with acyclovir so we will continue with that. Decadron discontinued. She is undergoing a lot of stress as her family member who lives with her just tried to commit suicide. all other antibiotics have been stopped, will continue to monitor micro results. Continue with Dr. hernandes so recommendations. She is currently day 4 of 7 ------ suspect herpes zoster as a viral source. The patient has a zoster rash on the right upper flank with a Gram stain with no organisms and white blood cells as well as elevated glucose. The patient's symptoms have improved with acyclovir so we will continue with that. She is undergoing a lot of stress as her family member who lives with her just tried to commit suicide. all other antibiotics have been stopped, will continue to monitor micro results. Continue with Dr. hernandes so recommendations. She is currently day 3 7 (2) Herpes zoster: Code(s): B02.9 - Zoster without complications Status: Acute Assessment and Plan: -----Continue Acicylovir and supportive care. Tylenol for pain ------Continue Acicylovir and supportive care. Tylenol for pain. (3) Anxiety and depression: Code(s): F41.9 - Anxiety disorder, unspecified; F32.9 - Major depressive disorder, single episode, unspecified Status: Acute Assessment and Plan: ----- stable but she is a little anxious today, continue sertraline. Will do p.r.n. Xanax Time Spent With Patient Time with patient: 15 - 25 minutes Subjective Date/time seen: 06/11/20 10:55 Interval history: Pt is a 65-year-old female for meningitis. Patient was seen today and is doing good. She has no complaints other than being a little anxious with everything going on. Pt denies nausea, vomiting, fevers, chills, vision changes, neck stiffness, constipation, diarrhea, chest pain, sob, or abdominal pain. She is eating and drinking well Review of Systems Review of Systems: All systems reviewed & are unremarkable except as noted in HPI and below Exam Narrative: Exam Narrative: General: Well developed well nourished patient in NAD HEENT: normocephalic Neck: supple Neuro: Alert and oriented x4. Cranial nerves 2-12 intact. Equal strength the upper lower extremities 5/5. CV:RRR Resp:CTA Abd: Soft, non distended. No pain to palpation. Positive bowel sounds Extremities: No swelling, erythema, or pain to palpation. Objective Data Vital Signs Vital Signs: Vital Signs - 24 hr 06/10/20 14:00 06/10/20 22:00 06/10/20 22:15 Temperature 98.0 F 98.2 F Pulse Rate 73 71 88 Respiratory Rate 18 20 20 Blood Pressure 136/76 130/75 Pulse Oximetry 100 99 96 06/11/20 06:00 Temperature 98.6 F Pulse Rate 69 Respiratory Rate 20 Blood Pressure 133/73 Pulse Oximetry 97 Intake/Output Intake/Output: Intake & Output 06/08/20 06/09/20 06/10/20 06/11/20 23:59 23:59 23:59 23:59 Intake Total 5014 5762 1264 Output Total 2900 3500 1100 Balance 2114 2262 164 Meds/Results Medications: Active Medications Generic Name Dose Route Start Last Admin Trade Name Freq PRN Reason Stop Dose Admin Acetaminophen 650 mg 06/09/20 18:13 Acetaminophen 325 Mg Tablet PO Q4H PRN Pain Aspirin 81 mg 06/09/20 08:00 06/11/20 08:08 Aspirin 81 Mg Chewable Tablet PO 81 mg DAILY@0800 [facility] Administration Calcium Carbonate 1,000 mg 06/09/20 09:00 06/11/20 08:08 Calcium Carbonate (Oscal) 500 Mg Tablet PO 07/09/20 09:01 1,000 mg BID [facility] Administration Cyanocobalamin 250 mcg 06/09/20 09:00 06/11/20 08:08 Cyanocob
[2020-06-11] MEDS: ALPRAZolam (*CRX) 0.25 MG TABLET PO ×2 (11:31→20:42)
--- NOTE | 2020-06-11 11:47 | WPDINFPN2 ---
Progress Note: A&P Assessment and Plan (1) Meningitis: Code(s): G03.9 - Meningitis, unspecified Status: Acute Assessment and Plan: 1. VZV meningitis. No overt immunocompromise. Symptomatically improved. 2. Rash R thorax due to same REC IV ACV # 4 / , then oral famciclovir 500 bid x 7 days. I did find case reports of this illness being treated successfully with high dose valacyclovir (without any IV treatment). But since these are not clinical trials (and such a randomized study would be very difficult to complete, due to low number of cases), I will instead use a combination of IV then po. Await CD4 panel result. Subjective Date/time seen: 06/11/20 11:47 Interval history: minimal headache, which she believes is due to poor sleep Exam Narrative: Exam Narrative: afebrile Const: General: comfortable and no acute distress Eyes: General: appearance normal, both eyes and all related structures Skin: General skin exam: normal color Other: 4 vesicles anterior T6 distribution, prior exam=erythematous papules same area without vesicles. Papules posterior T6 same. No vesicles elsewhere Neuro: Cognition (Neuro): normal cognition Speech: normal speech Objective Data Vital Signs Vital Signs: Vital Signs - 24 hr 06/10/20 14:00 06/10/20 22:00 06/10/20 22:15 Temperature 36.7 C 36.8 C Pulse Rate 73 71 88 Respiratory Rate 18 20 20 Blood Pressure 136/76 130/75 Pulse Oximetry 100 99 96 06/11/20 06:00 Temperature 37.0 C Pulse Rate 69 Respiratory Rate 20 Blood Pressure 133/73 Pulse Oximetry 97 Intake/Output Intake/Output: Intake & Output 06/08/20 06/09/20 06/10/20 06/11/20 23:59 23:59 23:59 23:59 Intake Total 5014 9406 1264 Output Total 2900 3500 1100 Balance 2114 5082 164 Meds/Results Medications: Active Medications Generic Name Dose Route Start Last Admin Trade Name Freq PRN Reason Stop Dose Admin Acetaminophen 650 mg 06/09/20 18:13 Acetaminophen 325 Mg Tablet PO Q4H PRN Pain Alprazolam 0.25 mg 06/11/20 11:04 06/11/20 11:31 Alprazolam (*Crx) 0.25 Mg Tablet PO 0.25 mg TID PRN Administration Anxiety Aspirin 81 mg 06/09/20 08:00 06/11/20 08:08 Aspirin 81 Mg Chewable Tablet PO 81 mg DAILY@0800 MARGARITA Administration Calcium Carbonate 1,000 mg 06/09/20 09:00 06/11/20 08:08 Calcium Carbonate (Oscal) 500 Mg Tablet PO 07/09/20 09:01 1,000 mg BID MARGARITA Administration Cyanocobalamin 250 mcg 06/09/20 09:00 06/11/20 08:08 Cyanocobalamin 250 Mcg Tablet PO 250 mcg QAM MARGARITA Administration Diphenhydramine HCl 25 mg 06/09/20 18:10 06/10/20 21:03 Diphenhydramine Hcl Cap 25 Mg Capsule PO 25 mg Q6H PRN Administration Itching Acyclovir Sodium 700 mg/ 264 mls @ 266 mls/hr 06/09/20 09:00 06/11/20 08:09 Dextrose IVPB 264 mls/hr Q8H MARGARITA Administration Ibuprofen 600 mg 06/09/20 18:11 06/11/20 04:15 Ibuprofen 600 Mg Tablet PO 600 mg Q4H PRN Administration Pain Lidocaine 1 patch 06/09/20 09:00 06/11/20 08:08 Lidocaine 5% Patch TOPICAL 1 patch DAILY MARGARITA Administration Melatonin 5 mg 06/09/20 02:00 06/10/20 21:03 Melatonin 5 Mg Tablet PO 5 mg HS MARGARITA Administration Sertraline HCl 25 mg 06/09/20 09:00 06/11/20 08:08 Sertraline Hcl 25 Mg Tablet PO 25 mg DAILY MARGARITA Administration Zinc Acetate/Diphenhydramine 1 applic 06/10/20 13:42 Diphenhydramine 1%/Zinc 0.1% Cream 30 Gm Tube TOPICAL QID PRN Itching Radiology Results: ITS Impressions Head CT 06/09/20 07:01 IMPRESSION: 1. Normal aging brain. Chest X-Ray 06/09/20 08:59 IMPRESSION: 1. No acute cardiopulmonary disease. Labs Labs: Laboratory Results - last 24 hr 06/11/20 06/11/20 06/11/20 05:53 05:53 05:53 WBC 12.6 H RBC 4.02 L Hgb 12.6 Hct 37.5 MCV 93.3 MCH 31.3 MCHC 33.6 RDW 13.0 Plt Count 303 MPV 10.7 H Sodium 137 Potassium 4.7
[2020-06-11 12:23] LABS: Herpes Simplex Type 1 DNA PCR Not Detected (Not Detected); Herpes Simplex Type 2 DNA PCR Not Detected (Not Detected)
[2020-06-11 14:00] VITALS: BP 141/73; PULSE 80; RESP 20; TEMP 36.5; O2SAT 97
--- NOTE | 2020-06-11 14:20 | WPDNEUROPN ---
Progress Note: A&P Assessment and Plan (1) Herpes zoster: Qualifiers: Herpes zoster complications: with nervous system involvement Herpes zoster neurologic complication detail: meningitis Qualified Code(s): B02.1 - Zoster meningitis Code(s): B02.9 - Zoster without complications Status: Acute (2) Herpes zoster: Code(s): B02.9 - Zoster without complications Status: Acute (3) Meningitis: Code(s): G03.9 - Meningitis, unspecified Status: Acute Additional Plan continue the present medical management will follow up periodically if there is any change in neurological is status then consideration for doing a brain MRI will be undertaken otherwise seems like clinically the patient is doing remarkably well and has improved with current management Review of Systems Review of Systems: All systems reviewed & are unremarkable except as noted in HPI and below Exam Narrative: Exam Narrative: patient is awake alert well or well oriented time place and person has normal speech and language function normal cranial examination normal motor examination normal sensory examination supple neck without any evidence of rigidity no bruises noted lungs are clear cardiovascular examination negative abdomen is soft not tender and extremities reveal no deformities Objective Data Vital Signs Vital Signs: Vital Signs - 24 hr 06/10/20 22:00 06/10/20 22:15 06/11/20 06:00 Temperature 36.8 C 37.0 C Pulse Rate 71 88 69 Respiratory Rate 20 20 20 Blood Pressure 130/75 133/73 Pulse Oximetry 99 96 97 Intake/Output Intake/Output: Intake & Output 06/08/20 06/09/20 06/10/20 06/11/20 23:59 23:59 23:59 23:59 Intake Total 5014 5710 1784 Output Total 2900 3500 1100 Balance 2114 2262 684 Meds/Results Medications: Active Medications Generic Name Dose Route Start Last Admin Trade Name Freq PRN Reason Stop Dose Admin Acetaminophen 650 mg 06/09/20 18:13 Acetaminophen 325 Mg Tablet PO Q4H PRN Pain Alprazolam 0.25 mg 06/11/20 11:04 06/11/20 11:31 Alprazolam (*Crx) 0.25 Mg Tablet PO 0.25 mg TID PRN Administration Anxiety Aspirin 81 mg 06/09/20 08:00 06/11/20 08:08 Aspirin 81 Mg Chewable Tablet PO 81 mg DAILY@0800 MARGARITA Administration Calcium Carbonate 1,000 mg 06/09/20 09:00 06/11/20 08:08 Calcium Carbonate (Oscal) 500 Mg Tablet PO 07/09/20 09:01 1,000 mg BID MARGARITA Administration Cyanocobalamin 250 mcg 06/09/20 09:00 06/11/20 08:08 Cyanocobalamin 250 Mcg Tablet PO 250 mcg QAM MARGARITA Administration Diphenhydramine HCl 25 mg 06/09/20 18:10 06/10/20 21:03 Diphenhydramine Hcl Cap 25 Mg Capsule PO 25 mg Q6H PRN Administration Itching Acyclovir Sodium 700 mg/ 264 mls @ 266 mls/hr 06/09/20 09:00 06/11/20 08:09 Dextrose IVPB 264 mls/hr Q8H MARGARITA Administration Ibuprofen 600 mg 06/09/20 18:11 06/11/20 04:15 Ibuprofen 600 Mg Tablet PO 600 mg Q4H PRN Administration Pain Lidocaine 1 patch 06/09/20 09:00 06/11/20 08:08 Lidocaine 5% Patch TOPICAL 1 patch DAILY MARGARITA Administration Melatonin 5 mg 06/09/20 02:00 06/10/20 21:03 Melatonin 5 Mg Tablet PO 5 mg HS MARGARITA Administration Sertraline HCl 25 mg 06/09/20 09:00 06/11/20 08:08 Sertraline Hcl 25 Mg Tablet PO 25 mg DAILY MARGARITA Administration Zinc Acetate/Diphenhydramine 1 applic 06/10/20 13:42 Diphenhydramine 1%/Zinc 0.1% Cream 30 Gm Tube TOPICAL QID PRN Itching Radiology Results: ITS Impressions Head CT 06/09/20 07:01 IMPRESSION: 1. Normal aging brain. Chest X-Ray 06/09/20 08:59 IMPRESSION: 1. No acute cardiopulmonary disease. Labs Labs: Laboratory Results - last 24 hr 06/08/20 06/11/20 06/11/20 22:20 05:53 05:53 WBC 12.6 H RBC 4.02 L Hgb 12.6 Hct 37.5 MCV 93.3 MCH 31.3 MCHC 33.6 RDW 13.0 Plt Count 303 MPV 10.7 H Sodium 137 Potassium
[2020-06-11 14:47] LABS: West Nile Virus, IgM <0.90 index (<0.90)
[2020-06-11] MEDS: diphenhydrAMINE HCl CAP 25 MG CAPSULE PO (20:42)
[2020-06-11] MEDS: MELATONIN 5 MG TABLET PO (20:43)
[2020-06-11 22:00] VITALS: BP 128/79; PULSE 72; RESP 18; TEMP 36.6; O2SAT 96
[2020-06-12] MEDS: ACYCLOVIR SODIUM IVPB 700 MG in DEXTROSE 5% IN WATER 250 ML 264 MG IVPB ×3 (01:04→17:13)
[2020-06-12] MEDS: IBUPROFEN 600 MG TABLET PO ×2 (03:17→15:33)
[2020-06-12] MEDS: ACETAMINOPHEN 325 MG TABLET 650 MG PO ×2 (04:28→21:48)
[2020-06-12] MEDS: ALPRAZolam (*CRX) 0.25 MG TABLET PO (04:31)
[2020-06-12 06:00] VITALS: BP 123/72; PULSE 65; RESP 18; TEMP 36.9; O2SAT 100
[2020-06-12 06:24] LABS: Hematocrit 36.9 % (37.0-47.0); Mean Corpuscular HGB Conc 32.5 g/dl (32-36); Mean Corpuscular Volume 95.3 fl (80-100); Mean Platelet Volume 10.4 fl (7.4-10.4); Platelet Count Result 268 k/mm3 (150-375); Red Blood Count 3.87 M/mm3 (4.2-5.4); Red Cell Distribution Width 13.2 % (11.5-14.5); White Blood Count 6.7 K/mm3 (4.5-10.0)
[2020-06-12 06:59] LABS: Anion Gap 5 mmol/L (8-16); Blood Urea Nitrogen 19 mg/dL (7-17); Calcium 8.7 mg/dL (8.4-10.2); Carbon Dioxide 33 mmol/L (22-30); Chloride 99 mmol/L (98-107); Estimated CRCL calculation 48 ml/min; Estimated Glomerular Filt Rate 56; Glucose 95 mg/dL (65-105); Potassium 3.7 mmol/L (3.4-5.0); Sodium 137 mmol/L (137-145)
[2020-06-12] MEDS: ASPIRIN 81 MG CHEWABLE TABLET PO (08:52)
[2020-06-12] MEDS: CALCIUM CARBONATE (OSCAL) 500 MG TABLET 1000 MG PO ×2 (08:52→17:13)
[2020-06-12] MEDS: CYANOCOBALAMIN 250 MCG TABLET PO (08:53)
[2020-06-12] MEDS: LIDOCAINE 5% PATCH 1 PATCH TOPICAL (08:53)
[2020-06-12] MEDS: SERTRALINE HCL 25 MG TABLET PO (08:53)
--- NOTE | 2020-06-12 11:40 | WPDNEUROPN ---
Progress Note: A&P Assessment and Plan (1) Anxiety and depression: Code(s): F41.9 - Anxiety disorder, unspecified; F32.9 - Major depressive disorder, single episode, unspecified Status: Acute (2) Herpes zoster: Qualifiers: Herpes zoster complications: with nervous system involvement Herpes zoster neurologic complication detail: meningitis Qualified Code(s): B02.1 - Zoster meningitis Code(s): B02.9 - Zoster without complications Status: Acute (3) Herpes zoster: Code(s): B02.9 - Zoster without complications Status: Acute (4) Meningitis: Code(s): G03.9 - Meningitis, unspecified Status: Acute Additional Plan new complaint of back pain will obtain the CT scan of the thoracic spine Review of Systems Review of Systems: All systems reviewed & are unremarkable except as noted in HPI and below Exam Narrative: Exam Narrative: she is awake alert follows instructions very well speech not dysphasic not dysarthric not dysphonic the cranial nerve examination is normal motor examination reveals her to have no neurological deficit deep tendon reflexes symmetrical plantars are downgoing her right-sided rash is definitely improving considering her complaints of back pain I will obtain the CT scan of the thoracic spine Objective Data Vital Signs Vital Signs: Vital Signs - 24 hr 06/11/20 14:00 06/11/20 22:00 06/12/20 06:00 Temperature 36.5 C 36.6 C 36.9 C Pulse Rate 80 72 65 Respiratory Rate 20 18 18 Blood Pressure 141/73 H 128/79 123/72 Pulse Oximetry 97 96 100 Intake/Output Intake/Output: Intake & Output 06/09/20 06/10/20 06/11/20 06/12/20 23:59 23:59 23:59 23:59 Intake Total 5014 5762 5032 2128 Output Total 2900 3500 3700 2200 Balance 2114 2262 1332 -72 Meds/Results Medications: Active Medications Generic Name Dose Route Start Last Admin Trade Name Freq PRN Reason Stop Dose Admin Acetaminophen 650 mg 06/09/20 18:13 06/12/20 04:28 Acetaminophen 325 Mg Tablet PO 650 mg Q4H PRN Administration Pain Alprazolam 0.25 mg 06/11/20 11:04 06/12/20 04:31 Alprazolam (*Crx) 0.25 Mg Tablet PO 0.25 mg TID PRN Administration Anxiety Aspirin 81 mg 06/09/20 08:00 06/12/20 08:52 Aspirin 81 Mg Chewable Tablet PO 81 mg DAILY@0800 MARGARITA Administration Calcium Carbonate 1,000 mg 06/09/20 09:00 06/12/20 08:52 Calcium Carbonate (Oscal) 500 Mg Tablet PO 07/09/20 09:01 1,000 mg BID MARGARITA Administration Cyanocobalamin 250 mcg 06/09/20 09:00 06/12/20 08:53 Cyanocobalamin 250 Mcg Tablet PO 250 mcg QAM [facility]ARGARITA Administration Diphenhydramine HCl 25 mg 06/09/20 18:10 06/11/20 20:42 Diphenhydramine Hcl Cap 25 Mg Capsule PO 25 mg Q6H PRN Administration Itching Acyclovir Sodium 700 mg/ 264 mls @ 266 mls/hr 06/09/20 09:00 06/12/20 09:52 Dextrose IVPB Infused Q8H [facility]ARG[facility]ITA Infusion Ibuprofen 600 mg 06/09/20 18:11 06/12/20 03:17 Ibuprofen 600 Mg Tablet PO 600 mg Q4H PRN Administration Pain Lidocaine 1 patch 06/09/20 09:00 06/12/20 08:53 Lidocaine 5% Patch TOPICAL 1 patch DAILY [facility] Administration Melatonin 5 mg 06/09/20 02:00 06/11/20 20:43 Melatonin 5 Mg Tablet PO 5 mg HS [facility]ARG[facility]ITA Administration Sertraline HCl 25 mg 06/09/20 09:00 06/12/20 08:53 Sertraline Hcl 25 Mg Tablet PO 25 mg DAILY [facility] Administration Zinc Acetate/Diphenhydramine 1 applic 06/10/20 13:42 Diphenhydramine 1%/Zinc 0.1% Cream 30 Gm Tube TOPICAL QID PRN Itching Radiology Results: ITS Impressions Head CT 06/09/20 07:01 IMPRESSION: 1. Normal aging brain. Chest X-Ray 06/09/20 08:59 IMPRESSION: 1. No acute cardiopulmonary disease. Labs Labs: Laboratory Results - last 24 hr 06/08/20 06/09/20 06/12/20 22:20 10:19 06:10 WBC 6.7 RBC 3.87 L Hgb 12.0 Hct 36.9 L MCV 95.3 MCH 31.0 MCHC 32.5 RDW 13.2 Plt Count 268 MPV
--- NOTE | 2020-06-12 13:01 | PM.IMPN ---
Progress Note: A&P Assessment and Plan (1) Meningitis: Code(s): G03.9 - Meningitis, unspecified Status: Acute Assessment and Plan: ------ suspect herpes zoster as a viral source. Pain is worsening so I will try gabapentin. The patient has a zoster rash on the right upper flank with a Gram stain with no organisms and white blood cells as well as elevated glucose. Decadron discontinued. She is undergoing a lot of stress as her family member who lives with her just tried to commit suicide. all other antibiotics have been stopped, will continue to monitor micro results. Continue with Dr. hernandes so recommendations. She is currently day 5 of 7 (2) Herpes zoster: Code(s): B02.9 - Zoster without complications Status: Acute Assessment and Plan: -----Continue Acicylovir and supportive care. Gabapentin started. (3) Anxiety and depression: Code(s): F41.9 - Anxiety disorder, unspecified; F32.9 - Major depressive disorder, single episode, unspecified Status: Acute Assessment and Plan: ----- stable but she is a little anxious today, continue sertraline. Continue p.r.n. Xanax Subjective Date/time seen: 06/12/20 13:01 Interval history: Patient is a 65-year-old female here for meningitis and herpes zoster. Patient was seen today and states that she is having more pain in her back where her zoster rash is. She said the ibuprofen was helping at 1st but now is not doing much. She said the Xanax did help her with her anxiety. She is eating and drinking well. she denies neck pain, headache, chest pain, shortness of breath, cough, fevers, chills, nausea, vomiting, diarrhea or constipation. Exam Narrative: Exam Narrative: General: Well developed well nourished patient in NAD HEENT: normocephalic Neck: supple Neuro: Alert and oriented x4. Cranial nerves 2-12 intact. Equal strength the upper lower extremities 5/5. CV:RRR Resp:CTA Abd: Soft, non distended. No pain to palpation. Positive bowel sounds Extremities: No swelling, erythema, or pain to palpation. Skin: zoster rash within a dermatone on her right side of her back Objective Data Vital Signs Vital Signs: Vital Signs - 24 hr 06/11/20 14:00 06/11/20 22:00 06/12/20 06:00 Temperature 97.7 F 97.9 F 98.4 F Pulse Rate 80 72 65 Respiratory Rate 20 18 18 Blood Pressure 141/73 H 128/79 123/72 Pulse Oximetry 97 96 100 Intake/Output Intake/Output: Intake & Output 06/09/20 06/10/20 06/11/20 06/12/20 23:59 23:59 23:59 23:59 Intake Total 5014 5788 5032 2128 Output Total 2900 3500 3700 2200 Balance 2114 2262 1332 -72 Meds/Results Medications: Active Medications Generic Name Dose Route Start Last Admin Trade Name Freq PRN Reason Stop Dose Admin Acetaminophen 650 mg 06/09/20 18:13 06/12/20 04:28 Acetaminophen 325 Mg Tablet PO 650 mg Q4H PRN Administration Pain Alprazolam 0.25 mg 06/11/20 11:04 06/12/20 04:31 Alprazolam (*Crx) 0.25 Mg Tablet PO 0.25 mg TID PRN Administration Anxiety Aspirin 81 mg 06/09/20 08:00 06/12/20 08:52 Aspirin 81 Mg Chewable Tablet PO 81 mg DAILY@0800 MARGARITA Administration Calcium Carbonate 1,000 mg 06/09/20 09:00 06/12/20 08:52 Calcium Carbonate (Oscal) 500 Mg Tablet PO 07/09/20 09:01 1,000 mg BID MARGARITA Administration Cyanocobalamin 250 mcg 06/09/20 09:00 06/12/20 08:53 Cyanocobalamin 250 Mcg Tablet PO 250 mcg QAM MARGARITA Administration Diphenhydramine HCl 25 mg 06/09/20 18:10 06/11/20 20:42 Diphenhydramine Hcl Cap 25 Mg Capsule PO 25 mg Q6H PRN Administration Itching Acyclovir Sodium 700 mg/ 264 mls @ 266 mls/hr 06/09/20 09:00 06/12/20 09:52 Dextrose IVPB Infused Q8H [facility]ITA Infusion Ibuprofen 600 mg 06/09/20 18:11 06/12/20 03:17 Ibuprofen 600 Mg Tablet PO 600 mg Q4H PRN Administration Pain Lidocaine 1 patch 06/09/20 09:00 06/12/20 08:53 Lidocaine 5% Patch TOPICAL
[2020-06-12 14:00] VITALS: BP 127/73; PULSE 72; RESP 18; TEMP 36.2; O2SAT 100
--- NOTE | 2020-06-12 14:18 | WPDINFPN2 ---
Progress Note: A&P Assessment and Plan (1) Meningitis: Code(s): G03.9 - Meningitis, unspecified Status: Acute Assessment and Plan: 1. VZV meningitis. No overt immunocompromise. Symptomatically improved. 2. Rash R thorax due to same, with post herpetic neuralgia REC IV ACV #5 / 7, then oral famciclovir 500 bid x 7 days. VZV pcr and CD4 panel still in process. Steroids relatively contraindicated in VZV meningitis, and have no benefit to treat PHN. She has used gabapentin in past and will resume. Discussed. Subjective Date/time seen: 06/12/20 14:18 Interval history: noticeably increased pain R back. No headache Exam Narrative: Exam Narrative: afebrile Const: General: no acute distress Eyes: General: appearance normal, both eyes and all related structures Skin: General skin exam: normal color Wounds: no wounds Other: no vesicles over back, + hyperesthesia Objective Data Vital Signs Vital Signs: Vital Signs - 24 hr 06/11/20 22:00 06/12/20 06:00 Temperature 36.6 C 36.9 C Pulse Rate 72 65 Respiratory Rate 18 18 Blood Pressure 128/79 123/72 Pulse Oximetry 96 100 Intake/Output Intake/Output: Intake & Output 06/09/20 06/10/20 06/11/20 06/12/20 23:59 23:59 23:59 23:59 Intake Total 5014 5762 5032 2608 Output Total 2900 3500 3700 2200 Balance 2114 2262 1332 408 Meds/Results Medications: Active Medications Generic Name Dose Route Start Last Admin Trade Name Freq PRN Reason Stop Dose Admin Acetaminophen 650 mg 06/09/20 18:13 06/12/20 04:28 Acetaminophen 325 Mg Tablet PO 650 mg Q4H PRN Administration Pain Alprazolam 0.25 mg 06/11/20 11:04 06/12/20 04:31 Alprazolam (*Crx) 0.25 Mg Tablet PO 0.25 mg TID PRN Administration Anxiety Aspirin 81 mg 06/09/20 08:00 06/12/20 08:52 Aspirin 81 Mg Chewable Tablet PO 81 mg DAILY@0800 MARGARITA Administration Calcium Carbonate 1,000 mg 06/09/20 09:00 06/12/20 08:52 Calcium Carbonate (Oscal) 500 Mg Tablet PO 07/09/20 09:01 1,000 mg BID MARGARITA Administration Cyanocobalamin 250 mcg 06/09/20 09:00 06/12/20 08:53 Cyanocobalamin 250 Mcg Tablet PO 250 mcg QAM MARGARITA Administration Diphenhydramine HCl 25 mg 06/09/20 18:10 06/11/20 20:42 Diphenhydramine Hcl Cap 25 Mg Capsule PO 25 mg Q6H PRN Administration Itching Gabapentin 100 mg 06/12/20 13:00 Gabapentin 100 Mg Capsule PO TID PRN neuropathic pain Acyclovir Sodium 700 mg/ 264 mls @ 266 mls/hr 06/09/20 09:00 06/12/20 09:52 Dextrose IVPB Infused Q8H [facility] Infusion Ibuprofen 600 mg 06/09/20 18:11 06/12/20 03:17 Ibuprofen 600 Mg Tablet PO 600 mg Q4H PRN Administration Pain Lidocaine 1 patch 06/09/20 09:00 06/12/20 08:53 Lidocaine 5% Patch TOPICAL 1 patch DAILY MARGARITA Administration Melatonin 5 mg 06/09/20 02:00 06/11/20 20:43 Melatonin 5 Mg Tablet PO 5 mg HS MARGARITA Administration Sertraline HCl 25 mg 06/09/20 09:00 06/12/20 08:53 Sertraline Hcl 25 Mg Tablet PO 25 mg DAILY MARGARITA Administration Zinc Acetate/Diphenhydramine 1 applic 06/10/20 13:42 Diphenhydramine 1%/Zinc 0.1% Cream 30 Gm Tube TOPICAL QID PRN Itching Radiology Results: ITS Impressions Head CT 06/09/20 07:01 IMPRESSION: 1. Normal aging brain. Chest X-Ray 06/09/20 08:59 IMPRESSION: 1. No acute cardiopulmonary disease. Thoracic Spine CT 06/12/20 13:35 IMPRESSION: 1. Moderate thoracic spondylosis and severe cervical spondylosis. 2. Thoracic dextroscoliosis. Labs Labs: Laboratory Results - last 24 hr 06/09/20 06/12/20 06/12/20 10:19 06:10 06:10 WBC 6.7 RBC 3.87 L Hgb 12.0 Hct 36.9 L MCV 95.3 MCH 31.0 MCHC 32.5 RDW 13.2 Plt Count 268 MPV 10.4 Sodium 137 Potassium 3.7 Chloride 99 Carbon Dioxide 33 H Anion Gap 5 L BUN 19 H Creatinine 1.00 Estim Creat Clear Calc 48 Estimated GFR 56 L
[2020-06-12] MEDS: GABAPENTIN 100 MG CAPSULE PO (17:13)
[2020-06-12] MEDS: MELATONIN 5 MG TABLET PO (20:07)
[2020-06-12 22:00] VITALS: BP 129/61; PULSE 77; RESP 18; TEMP 37.2; O2SAT 95
[2020-06-13] MEDS: ACYCLOVIR SODIUM IVPB 700 MG in DEXTROSE 5% IN WATER 250 ML 264 MG IVPB ×3 (00:15→16:37)
[2020-06-13] MEDS: GABAPENTIN 100 MG CAPSULE PO ×2 (01:25→09:05)
[2020-06-13] MEDS: ALPRAZolam (*CRX) 0.25 MG TABLET PO ×2 (05:47→21:51)
[2020-06-13] MEDS: IBUPROFEN 600 MG TABLET PO (05:47)
[2020-06-13] MEDS: HYDROcodone/acetaminophen (*CRX) 5-325 MG TABLET 1 TAB PO ×2 (05:58→20:32)
[2020-06-13 06:00] VITALS: BP 120/83; PULSE 73; RESP 18; TEMP 36.6; O2SAT 99
[2020-06-13 06:31] LABS: Hematocrit 36.1 % (37.0-47.0); Hemoglobin 11.8 g/dL (12.0-15.0); Mean Corpuscular HGB Conc 32.7 g/dl (32-36); Mean Corpuscular Hemoglobin 30.7 pg (26-34); Mean Platelet Volume 9.9 fl (7.4-10.4); Platelet Count Result 262 k/mm3 (150-375); Red Blood Count 3.84 M/mm3 (4.2-5.4); Red Cell Distribution Width 13.1 % (11.5-14.5); White Blood Count 5.8 K/mm3 (4.5-10.0)
[2020-06-13 06:45] LABS: Anion Gap 5 mmol/L (8-16); Blood Urea Nitrogen 18 mg/dL (7-17); Calcium 8.6 mg/dL (8.4-10.2); Carbon Dioxide 29 mmol/L (22-30); Chloride 100 mmol/L (98-107); Estimated CRCL calculation 53 ml/min; Estimated Glomerular Filt Rate > 60; Glucose 88 mg/dL (65-105); Potassium 4.3 mmol/L (3.4-5.0); Sodium 134 mmol/L (137-145)
[2020-06-13] MEDS: ASPIRIN 81 MG CHEWABLE TABLET PO (09:04)
[2020-06-13] MEDS: SERTRALINE HCL 25 MG TABLET PO (09:05)
[2020-06-13] MEDS: CALCIUM CARBONATE (OSCAL) 500 MG TABLET 1000 MG PO ×2 (09:05→16:37)
[2020-06-13] MEDS: LIDOCAINE 5% PATCH 1 PATCH TOPICAL (09:05)
[2020-06-13] MEDS: CYANOCOBALAMIN 250 MCG TABLET PO (09:05)
--- NOTE | 2020-06-13 10:56 | PM.IMPN ---
Progress Note: A&P Assessment and Plan (1) Meningitis: Code(s): G03.9 - Meningitis, unspecified Status: Acute Assessment and Plan: ------ suspect herpes zoster as a viral source. She has no neck pain or headache but is having pain within the rash distribution. Gabapentin was scheduled but I increased the dose. [place] will be available as well. The patient has a zoster rash on the right upper flank with a Gram stain with no organisms and white blood cells as well as elevated glucose. Decadron discontinued. She is undergoing a lot of stress as her family member who lives with her just tried to commit suicide. all other antibiotics have been stopped, will continue to monitor micro results. Continue with Dr. hernandes so recommendations. She is currently day 6 of 7 (2) Herpes zoster: Code(s): B02.9 - Zoster without complications Status: Acute Assessment and Plan: -----Continue Acicylovir and supportive care. Gabapentin adjusted (3) Anxiety and depression: Code(s): F41.9 - Anxiety disorder, unspecified; F32.9 - Major depressive disorder, single episode, unspecified Status: Acute Assessment and Plan: ----- stable but she is a little anxious today, continue sertraline. Continue p.r.n. Xanax Subjective Date/time seen: 06/13/20 10:56 Interval history: Patient is a 65-year-old female here for meningitis and herpes zoster. patient states that she had significant pain overnight and was unable to sleep because of it. Today her pain is 2/10 at this time but much worse at night. She thinks the [place] has helped more than the gabapentin. she says her anxiety is better. She is eating and drinking well. She feels a bit constipated. She has not been up and walking much and we talked about walking around the room or the halls with a mask. She denies chest pain, shortness of breath, fevers, chills, nausea, vomiting, diarrhea, neck pain or headache. Exam Narrative: Exam Narrative: General: Well developed well nourished patient in NAD HEENT: normocephalic Neck: supple Neuro: Alert and oriented x4. Cranial nerves 2-12 intact. Equal strength the upper lower extremities 5/5. CV:RRR Resp:CTA Abd: Soft, non distended. No pain to palpation. Positive bowel sounds Extremities: No swelling, erythema, or pain to palpation. Skin: zoster rash within a dermatone on her right side of her back Objective Data Vital Signs Vital Signs: Vital Signs - 24 hr 06/12/20 14:00 06/12/20 22:00 06/13/20 06:00 Temperature 97.2 F L 98.9 F 97.8 F Pulse Rate 72 77 73 Respiratory Rate 18 18 18 Blood Pressure 127/73 129/61 120/83 Pulse Oximetry 100 95 99 Intake/Output Intake/Output: Intake & Output 06/10/20 06/11/20 06/12/20 06/13/20 23:59 23:59 23:59 23:59 Intake Total 5762 5032 6422 1768 Output Total 3500 3700 4200 1500 Balance 2262 1332 2222 268 Meds/Results Medications: Active Medications Generic Name Dose Route Start Last Admin Trade Name Freq PRN Reason Stop Dose Admin Acetaminophen 650 mg 06/09/20 18:13 06/12/20 21:48 Acetaminophen 325 Mg Tablet PO 650 mg Q4H PRN Administration Pain Alprazolam 0.25 mg 06/11/20 11:04 06/13/20 05:47 Alprazolam (*Crx) 0.25 Mg Tablet PO 0.25 mg TID PRN Administration Anxiety Aspirin 81 mg 06/09/20 08:00 06/13/20 09:04 Aspirin 81 Mg Chewable Tablet PO 81 mg DAILY@0800 [facility] Administration Calcium Carbonate 1,000 mg 06/09/20 09:00 06/13/20 09:05 Calcium Carbonate (Oscal) 500 Mg Tablet PO 07/09/20 09:01 1,000 mg BID MARGARITA Administration Cyanocobalamin 250 mcg 06/09/20 09:00 06/13/20 09:05 Cyanocobalamin 250 Mcg Tablet PO 250 mcg QAM [facility] Administration Diphenhydramine HCl 25 mg 06/09/20 18:10 06/11/20 20:42 Diphenhydramine Hcl Cap 25 Mg Capsule PO 25 mg Q6H PRN Administration Itching Gabapentin 100 mg 06/13/20 09:00 06/13/20 09:05 Gabapentin 1
--- NOTE | 2020-06-13 12:48 | WPDINFPN2 ---
Progress Note: A&P Assessment and Plan (1) Meningitis: Code(s): G03.9 - Meningitis, unspecified Status: Acute Assessment and Plan: 1. VZV meningitis. No overt immunocompromise. Symptomatically improved. 2. Rash R thorax due to same, with post herpetic neuralgia. She also has structural abnormlities (no infection) on spine CT, contributing to her pain REC IV ACV #6, continue until AM 06/15, Then oral famciclovir 500 bid x 7 days (has a supply at home). VZV pcr and CD4 panel still in process. Steroids relatively contraindicated in VZV meningitis, and have no benefit to treat PHN. No activity restrictions, no isolation.. Subjective Date/time seen: 06/13/20 12:48 Interval history: pain worse at night, less marked today Exam Narrative: Exam Narrative: afebrile Const: General: no acute distress Eyes: General: appearance normal, both eyes and all related structures Resp: Effort & Inspection: normal respiratory effort Cardio: Rate: bradycardic Rhythm: regular rhythm Heart sounds: no gallops and no murmurs GI: Inspection: non-distended GI Palp: Yes Soft to palpation, No Tenderness to palpation present (GI) and No Guarding due to palpation present (GI) Objective Data Vital Signs Vital Signs: Vital Signs - 24 hr 06/12/20 14:00 06/12/20 22:00 06/13/20 06:00 Temperature 36.2 C L 37.2 C 36.6 C Pulse Rate 72 77 73 Respiratory Rate 18 18 18 Blood Pressure 127/73 129/61 120/83 Pulse Oximetry 100 95 99 Intake/Output Intake/Output: Intake & Output 06/10/20 06/11/20 06/12/20 06/13/20 23:59 23:59 23:59 23:59 Intake Total 5762 5032 6422 1768 Output Total 3500 3700 4200 1500 Balance 2262 1332 2222 268 Meds/Results Medications: Active Medications Generic Name Dose Route Start Last Admin Trade Name Freq PRN Reason Stop Dose Admin Acetaminophen 650 mg 06/13/20 10:57 Acetaminophen 325 Mg Tablet PO Q4H PRN Pain 1-5 Hydrocodone Bitart/Acetaminophen 1 tab 06/13/20 10:57 Hydrocodone/Acetaminophen (*Crx) 5-325 Mg Tablet PO Q6H PRN Pain Rated 6-10 Alprazolam 0.25 mg 06/11/20 11:04 06/13/20 05:47 Alprazolam (*Crx) 0.25 Mg Tablet PO 0.25 mg TID PRN Administration Anxiety Aspirin 81 mg 06/09/20 08:00 06/13/20 09:04 Aspirin 81 Mg Chewable Tablet PO 81 mg DAILY@0800 [facility]ARGARITA Administration Calcium Carbonate 1,000 mg 06/09/20 09:00 06/13/20 09:05 Calcium Carbonate (Oscal) 500 Mg Tablet PO 07/09/20 09:01 1,000 mg BID [facility] Administration Cyanocobalamin 250 mcg 06/09/20 09:00 06/13/20 09:05 Cyanocobalamin 250 Mcg Tablet PO 250 mcg QAM [facility] Administration Diphenhydramine HCl 25 mg 06/09/20 18:10 06/11/20 20:42 Diphenhydramine Hcl Cap 25 Mg Capsule PO 25 mg Q6H PRN Administration Itching Gabapentin 200 mg 06/13/20 13:00 Gabapentin 100 Mg Capsule PO TID [facility] Acyclovir Sodium 700 mg/ 264 mls @ 266 mls/hr 06/09/20 09:00 06/13/20 10:04 Dextrose IVPB Infused Q8H [facility] Infusion Ibuprofen 600 mg 06/09/20 18:11 06/13/20 05:47 Ibuprofen 600 Mg Tablet PO 600 mg Q4H PRN Administration Pain 1-5 Lidocaine 1 patch 06/09/20 09:00 06/13/20 09:05 Lidocaine 5% Patch TOPICAL 1 patch DAILY [facility] Administration Melatonin 5 mg 06/09/20 02:00 06/12/20 20:07 Melatonin 5 Mg Tablet PO 5 mg HS [facility] Administration Polyethylene Glycol 17 gm 06/13/20 11:00 Polyethylene Glycol 3350 17 Gm Powd.Pack PO QAM [facility] Sertraline HCl 25 mg 06/09/20 09:00 06/13/20 09:05 Sertraline Hcl 25 Mg Tablet PO 25 mg DAILY [facility] Administration Zinc Acetate/Diphenhydramine 1 applic 06/10/20 13:42 Diphenhydramine 1%/Zinc 0.1% Cream 30 Gm Tube TOPICAL QID PRN Itching Radiology Results: ITS Impressions Head CT 06/09/20 07:01 IMPRESSION: 1. Normal aging brain. Chest X-Ray 06/09/20 08:59 IMPRESSION: 1. No acute cardiopulmonary disease. Thoracic Spine
[2020-06-13] MEDS: GABAPENTIN 100 MG CAPSULE 200 MG PO ×2 (13:35→16:38)
[2020-06-13] MEDS: polyethylene glycoL 3350 17 GM POWD.PACK PO (13:35)
[2020-06-13 13:36] VITALS: BP 128/77; PULSE 77; RESP 18; TEMP 36.4; O2SAT 97
[2020-06-13 22:00] VITALS: BP 136/73; PULSE 65; RESP 20; TEMP 36.2; O2SAT 100
[2020-06-14] MEDS: ACYCLOVIR SODIUM IVPB 700 MG in DEXTROSE 5% IN WATER 250 ML 264 MG IVPB (00:53)
[2020-06-14] MEDS: HYDROcodone/acetaminophen (*CRX) 5-325 MG TABLET 1 TAB PO ×3 (02:23→17:14)
[2020-06-14 06:00] VITALS: BP 118/63; PULSE 63; RESP 20; TEMP 36.3; O2SAT 100
[2020-06-14 06:38] LABS: Hematocrit 38.8 % (37.0-47.0); Hemoglobin 12.8 g/dL (12.0-15.0); Mean Corpuscular Hemoglobin 31.5 pg (26-34); Mean Corpuscular Volume 95.6 fl (80-100); Mean Platelet Volume 10.1 fl (7.4-10.4); Platelet Count Result 274 k/mm3 (150-375); Red Blood Count 4.06 M/mm3 (4.2-5.4); Red Cell Distribution Width 12.8 % (11.5-14.5); White Blood Count 5.5 K/mm3 (4.5-10.0)
[2020-06-14 06:50] LABS: Anion Gap 4 mmol/L (8-16); Blood Urea Nitrogen 16 mg/dL (7-17); Calcium 8.9 mg/dL (8.4-10.2); Carbon Dioxide 34 mmol/L (22-30); Chloride 99 mmol/L (98-107); Estimated CRCL calculation 53 ml/min; Estimated Glomerular Filt Rate > 60; Glucose 90 mg/dL (65-105); Potassium 4.3 mmol/L (3.4-5.0); Sodium 137 mmol/L (137-145)
[2020-06-14 08:00] VITALS: PULSE 63; RESP 20; O2SAT 100
[2020-06-14] MEDS: ACYCLOVIR SODIUM IVPB 700 MG in DEXTROSE 5% IN WATER 250 ML 266 MG IVPB ×2 (08:31→17:14)
[2020-06-14] MEDS: CALCIUM CARBONATE (OSCAL) 500 MG TABLET 1000 MG PO ×2 (08:32→17:15)
[2020-06-14] MEDS: ASPIRIN 81 MG CHEWABLE TABLET PO (08:32)
[2020-06-14] MEDS: CYANOCOBALAMIN 250 MCG TABLET PO (08:32)
[2020-06-14] MEDS: LIDOCAINE 5% PATCH 1 PATCH TOPICAL (08:33)
[2020-06-14] MEDS: SERTRALINE HCL 25 MG TABLET PO (08:34)
[2020-06-14] MEDS: GABAPENTIN 100 MG CAPSULE 200 MG PO ×3 (09:57→17:15)
[2020-06-14 14:00] VITALS: BP 136/73; PULSE 90; RESP 12; TEMP 36.3; O2SAT 97
--- NOTE | 2020-06-14 15:06 | PM.IMPN ---
Progress Note: A&P Assessment and Plan (1) Meningitis: Code(s): G03.9 - Meningitis, unspecified Status: Acute Assessment and Plan: ------ suspect herpes zoster as a viral source. She has no neck pain or headache but is having pain within the rash distribution. Gabapentin was scheduled but I increased the dose. [place] will be available as well. The patient has a zoster rash on the right upper flank with a Gram stain with no organisms and white blood cells as well as elevated glucose. Decadron discontinued. She is undergoing a lot of stress as her family member who lives with her just tried to commit suicide. all other antibiotics have been stopped, will continue to monitor micro results. Continue with Dr. hernandes so recommendations. Currently receiving day 7 antibiotics and is going to discharge tomorrow morning after her morning dose. (2) Herpes zoster: Code(s): B02.9 - Zoster without complications Status: Acute Assessment and Plan: -----Continue Acicylovir and supportive care. She is doing well on gabapentin and [place] for pain (3) Anxiety and depression: Code(s): F41.9 - Anxiety disorder, unspecified; F32.9 - Major depressive disorder, single episode, unspecified Status: Acute Assessment and Plan: ----- stable continue sertraline. Continue p.r.n. Xanax Subjective Date/time seen: 06/14/20 15:06 Interval history: Patient is a 65-year-old female here for meningitis and herpes zoster. Patient was seen today and states she slept better last night and she has her entire hospital stay. She says her pain is worse at night but much better last night compared to the nights prior. Today she feels great and has not required pain medications. She is eating and drinking okay. Pt denies nausea, vomiting, fevers, chills, vision changes, headaches, neck pain, neck stiffness, constipation, diarrhea, chest pain, sob, or abdominal pain. Exam Narrative: Exam Narrative: General: Well developed well nourished patient in NAD HEENT: normocephalic Neck: supple Neuro: Alert and oriented x4. Cranial nerves 2-12 intact. Equal strength the upper lower extremities 5/5. CV:RRR Resp:CTA Abd: Soft, non distended. No pain to palpation. Positive bowel sounds Extremities: No swelling, erythema, or pain to palpation. Skin: zoster rash within a dermatone on her right side of her back Objective Data Vital Signs Vital Signs: Vital Signs - 24 hr 06/13/20 22:00 06/14/20 06:00 06/14/20 08:00 Temperature 97.2 F L 97.4 F L Pulse Rate 65 63 63 Respiratory Rate 20 20 20 Blood Pressure 136/73 118/63 Pulse Oximetry 100 100 100 06/14/20 14:00 Temperature 97.3 F L Pulse Rate 90 Respiratory Rate 12 Blood Pressure 136/73 Pulse Oximetry 97 Intake/Output Intake/Output: Intake & Output 06/11/20 06/12/20 06/13/20 06/14/20 23:59 23:59 23:59 23:59 Intake Total 5032 6422 5512 1964 Output Total 3700 4200 5900 1400 Balance 1332 2222 -388 564 Meds/Results Medications: Active Medications Generic Name Dose Route Start Last Admin Trade Name Freq PRN Reason Stop Dose Admin Acetaminophen 650 mg 06/13/20 10:57 Acetaminophen 325 Mg Tablet PO Q4H PRN Pain 1-5 Hydrocodone Bitart/Acetaminophen 1 tab 06/13/20 10:57 06/14/20 08:31 Hydrocodone/Acetaminophen (*Crx) 5-325 Mg Tablet PO 1 tab Q6H PRN Administration Pain Rated 6-10 Alprazolam 0.25 mg 06/11/20 11:04 06/13/20 21:51 Alprazolam (*Crx) 0.25 Mg Tablet PO 0.25 mg TID PRN Administration Anxiety Aspirin 81 mg 06/09/20 08:00 06/14/20 08:32 Aspirin 81 Mg Chewable Tablet PO 81 mg DAILY@0800 MARGARITA Administration Calcium Carbonate 1,000 mg 06/09/20 09:00 06/14/20 08:32 Calcium Carbonate (Oscal) 500 Mg Tablet PO 07/09/20 09:01 1,000 mg BID MARGARITA Administration Cyanocobalamin 250 mcg 06/09/20 09:00 06/14/20 08:32 Cyanocobalamin 250 Mcg Tablet PO
[2020-06-14 19:35] LABS: Absolute CD4 Count 297 cells/uL (490-1740); Lymphocytes, Absolute 928 cells/uL (850-3900); Percent CD4 Cells 32 % (30-61)
[2020-06-14] MEDS: ALPRAZolam (*CRX) 0.25 MG TABLET PO (19:53)
[2020-06-14 21:49] VITALS: BP 105/52; PULSE 68; RESP 16; TEMP 37; O2SAT 97
[2020-06-14] MEDS: polyethylene glycoL 3350 17 GM POWD.PACK PO (21:51)
[2020-06-14] MEDS: MELATONIN 5 MG TABLET PO (21:55)
[2020-06-15] MEDS: ACYCLOVIR SODIUM IVPB 700 MG in DEXTROSE 5% IN WATER 250 ML 266 MG IVPB ×2 (00:42→08:52)
[2020-06-15] MEDS: HYDROcodone/acetaminophen (*CRX) 5-325 MG TABLET 1 TAB PO ×2 (00:49→08:50)
[2020-06-15 06:00] VITALS: BP 106/52; PULSE 69; RESP 16; TEMP 36.4; O2SAT 98
[2020-06-15 08:00] VITALS: PULSE 69; RESP 16; O2SAT 98
[2020-06-15] MEDS: GABAPENTIN 100 MG CAPSULE 200 MG PO (08:50)
[2020-06-15] MEDS: CALCIUM CARBONATE (OSCAL) 500 MG TABLET 1000 MG PO (08:50)
[2020-06-15] MEDS: CYANOCOBALAMIN 250 MCG TABLET PO (08:51)
[2020-06-15] MEDS: LIDOCAINE 5% PATCH 1 PATCH TOPICAL (08:51)
[2020-06-15] MEDS: ASPIRIN 81 MG CHEWABLE TABLET PO (08:51)
[2020-06-15] MEDS: SERTRALINE HCL 25 MG TABLET PO (08:51)
[2020-06-15] MEDS: polyethylene glycoL 3350 17 GM POWD.PACK PO (08:52)
--- NOTE | 2020-06-15 09:32 | PM.DS ---
DS: Admitting Diagnosis Admitting Diagnosis Admitting Diagnosis: headache DS: Discharge Diagnosis Discharge Diagnosis (1) Meningitis: Code(s): G03.9 - Meningitis, unspecified Status: Acute Assessment and Plan: ------Likely viral source since pt has active zoster rash. Neurological symptoms have resolved with 7 days of IV acyclovir. She has no neck pain or headache but is having pain within the rash distribution. Pt has norco from previous visit she can take for pain at home along with lidocaine patches. She should finish 7 more days of oral famciclovir. (2) Herpes zoster: Code(s): B02.9 - Zoster without complications Status: Acute Assessment and Plan: -----see above (3) Anxiety and depression: Code(s): F41.9 - Anxiety disorder, unspecified; F32.9 - Major depressive disorder, single episode, unspecified Status: Acute Assessment and Plan: ----- stable. continue sertraline. DS: Summary Hospital Course Reason for hospitalization: meningitis Hospital Course: Pt is a 65-year-old female who developed a herpes zoster rash earlier that day who presented emergency room with this severe frontal headache with neck stiffness with some confusion. Vitals in [facility] ER were temperature 37.5 degree C, pulse 94, respiratory rate 18, blood pressure 147/71, pulse ox 97 on room air. CBC and BMP within normal limits. Patient underwent a lumbar puncture in the ER which showed high-protein, elevated neutrophils, normal lymphocytes, and normal glucose. CT of the brain showed normal aging brain. Because of the history of zoster rash and the abnormalities on the LP, the patient was admitted to the hospitalist service for meningitis. She received 7 days of IV acyclovir and was transition to 7 additional days on famciclovir. She had problems with pain throughout her stay which was improved with [place] which she was sent home with. Her rash improved but she still suffers from post herpetic neuralgia. Viral cultures are still pending the day of discharge but will be monitored until finalized. Overall, the patient had improvement and was ready for discharge. She was educated about the worrisome signs and symptoms to come back to emergency room for was discharged stable condition. Status at Discharge Functional status at discharge: independent ambulation Overall status at discharge: patient is back to baseline Time Spent with Patient Time attestation: Total time spent providing and/or coordinating discharge services:32 min Exam Narrative: Exam Narrative: General: Well developed well nourished patient in NAD HEENT: normocephalic Neck: supple Neuro: Alert and oriented x4. Cranial nerves 2-12 intact. Equal strength the upper lower extremities 5/5. CV:RRR Resp:CTA Abd: Soft, non distended. No pain to palpation. Positive bowel sounds Extremities: No swelling, erythema, or pain to palpation. Skin: zoster rash within a dermatone on her right side of her back DS: Data Data Completed and Pending Labs on day of discharge: Labs from last 24 hours 06/10/20 06:27 Absolute Lymphocytes 928 % CD4 Cells 32 Absolute CD4 Count 297 L Discharge Plan Discharge Attending physician on discharge: Wilver Rodriguez Consulting providers: Venita Duenas ; Curry Wisdom ; Marcelo Ruiz Discharging Clinician: Nereyda Hopkins Patient Disposition: Home, Self-Care Activity: as tolerated Diet: regular Discharge Instructions: -continue your famciclovir you received from the ER prior to your admission until they are finished -Follow up with your primary care physician in 1-2 weeks about this stay -You have been prescribed narcotic pain medication. This pain medication can make you constipated. Utilize [id number] medications to relieve your constipation symptoms. Take only as directed as these medications can be addictive. Do not drive on these medica
[2020-06-17 06:15] LABS: Albumin, CSF 54.4 mg/dL (8.0-42.0); Albumin, Serum 4.3 g/dL (3.2-4.6); IgG Index, CSF 0.42 (<0.66); IgG, CSF 7.2 mg/dL (0.8-7.7); Immunoglobulin G, Serum 1340 mg/dL (600-1540); Myelin Basic Protein, CSF <2.0 mcg/L (2.0-4.0); Synthesis Rate IgG, CSF -6.1 mg/24 h (-9.9-3.3)
--- NOTE | 2020-06-19 08:06 | PC.NURSE ---
CD4 is low at 297. RJOHN Villagomez aware
[2020-06-19 13:27] LABS: Varicella Zoster Source CSF
[2020-06-19 13:30] LABS: VZV DNA, QL PCR DETECTED
--- NOTE | 2020-06-25 07:35 | PC.NURSE ---
VZV is negative. JOHN Alicia aware.
== END 2020-06-15 13:20 | disposition home or self-care (01) | DRG 76 ==
LOC: ANHED 06-09 00:13 → ANH3MEDSUR 06-09 01:37
PROVIDERS: Internal Medicine Infectious Disease; Physician Assistant; Admitting Provider Family Medicine; Emergency Provider Emergency Medicine; Visit Provider Physician Assistant
DX: B02.1 Zoster meningitis (principal); F32.9 Major depressive disorder, single episode, unspecified; F41.9 Anxiety disorder, unspecified; Z20.828 Contact with and (suspected) exposure to other viral communicable diseases; Z28.21 Immunization not carried out because of patient refusal; Z79.899 Other long term (current) drug therapy; Z87.891 Personal history of nicotine dependence
CPT/HCPCS: 36415; 62270; 70450; 71045; 72128; 80048; 80076; 81001; 82040; 82042; 82784; 82945; 83735; 83873; 83916; 84157; 85025; 85027; 86361; 86703; 86788; 87040; 87070; 87205; 87529; 87635; 87798; 88108; 89051; 96374; 96375; 99285; A9270; C9803; G0432; J0133; J0290; J0696; J1100; J1885; J3010; J3370; J7060; U0003

== ENCOUNTER → 2020-12-11 16:27 | Outpatient (CLI) | payer OTHER, SELFPAY ==
--- NOTE | ~2020-12-11 | MM_ITS ---
EXAMINATION: MM screening [place]aya BI w ernesto HISTORY: Screening TECHNIQUE: Craniocaudal and mediolateral oblique 3-D tomosynthesis images were obtained and synthetic 2-D images were generated. CAD analysis was submitted and interpreted. COMPARISON: Comparison to multiple prior studies sequentially, with oldest reviewed study dated 05/09. BREAST PARENCHYMAL COMPOSITION: There are scattered areas of fibroglandular density. FINDINGS: There is no evidence of suspicious mass, calcification, or architectural distortion to sugg est malignancy in either breast. There has been no suspicious interval change. IMPRESSION: 1. No mammographic evidence of malignancy. 2. Recommend routine screening mammography in one year. BI-RADS Category 1: Negative Reviewed, dictated and finalized at location A.
== END ==
DX: Z12.31 Encounter for screening mammogram for malignant neoplasm of breast (principal)
CPT/HCPCS: 77063; 77067

== ENCOUNTER 2021-03-27 09:39 | Emergency (ER) | payer OTHER, SELFPAY ==
[2021-03-27 09:49] VITALS: BP 129/97; PULSE 65; RESP 16; TEMP 36.5; O2SAT 100
--- NOTE | 2021-03-27 10:46 | ED.URI ---
HPI - URI/Sore Throat General Chief Complaint: Upper Respiratory Infection Stated Complaint: Sore Throat Time Seen by Provider: 03/27/21 10:40 Source: patient, RN notes reviewed and old records reviewed Mode of arrival: ambulatory Limitations: no limitations History of Present Illness HPI Narrative: 66 year old female who presents to [facility] care with complaints of 2-3 weeks of nasal congestion and occasional cough with clear sputum, itchy red throat and ear pressure. Patient states that she is suppose to get tomorrow and [facility]. She states that she has had some headache and pressure to face, does state history of sinus infections. Patient states that she just had a COVID test yesterday at [facility] and and will have results in 21-48 hours in preparation for their trip to [facility]. MD elicited complaint: sore throat, rhinorrhea, nasal congestion and other (headache) Pertinent past history: sinusitis Onset (ago): week(s) (2-3) Consistency: constant Severity: moderate Pain scale (0-10): 5 Description of mucous: clear Able to tolerate fluids by mouth: Yes Exacerbating factors: swallowing Related Data Home Medications Medication Instructions Recorded Confirmed Arthritis Pain Relief (ASA) 81 mg PO DAILY 06/09/20 06/09/20 Fish Oil 1,200 mg PO DAILY 06/09/20 06/09/20 Vitamin B-12 200 mg PO DAILY 06/09/20 06/09/20 calcium 900 mg PO BID 06/09/20 06/09/20 magnesium 400 mg PO DAILY 06/09/20 06/09/20 melatonin 5 mg PO HS 06/09/20 06/09/20 ergocalciferol (vitamin D2) 03/27/21 levothyroxine 03/27/21 Allergies Allergy/AdvReac Type Severity Reaction Status Date / Time No Known Allergies Allergy Verified 06/08/20 08:21 Review of Systems Review of Systems: CONSTITUTIONAL: Denies fever, chills, or sweats. EYES: Denies visual changes, redness, or discharge. ENT: Positive rhinorrhea, congestion, sore throat,bilateral ear pressure CARDIOVASCULAR: Denies chest pain, palpitations, or edema. RESPIRATORY: Denies cough or dyspnea. GASTROINTESTINAL: Denies abdominal pain, nausea, vomiting, or diarrhea. GENITOURINARY: Denies dysuria or hematuria. SKIN: Denies rash or itching. MUSCULOSKELETAL: Denies back pain, joint pain, or myalgia. NEUROLOGIC: Positive facial pressure and frontal headache intermittently, no numbness, or weakness. PSYCHIATRIC: Positive history anxiety or depression. All systems reviewed & are unremarkable except as noted in HPI and below PMFSH Past Medical History Medical History (Updated 03/30/21 @ 15:43 by Maria Teresa Byrne NP) Depression Herpes zoster Meningitis Sinusitis Surgical History Surgical History History of appendectomy Family History Family History Father Acute myocardial infarction Prostate carcinoma Other Diabetes mellitus Social History Social History Smoking status: Former smoker Alcohol intake: current Drinks per week: 0 Substance use: never Substance use type: does not use Gender identity (if verbalized by the patient): Female Spiritual care concerns: No Comments At time of signature, agree with nursing past medical, surgical, social and family history. There is no relevant family history pertinent to the presenting complaint Exam Narrative: GENERAL: Well-appearing, well-nourished, and in no acute distress. HEAD: Normocephalic, atraumatic. EYES: PERRLA and EOMI. ENT: Nares red with clear rhinorrhea no epistaxis,facial pressure with frontal headache Mucous membranes moist. TM's normal with dull light reflex, throat red with no exudates or lesion or tonsil enlargement post nasal drainage noted NECK: Supple. no lymphadenopathy CHEST: Clear to auscultation. No respiratory distress.SAO2 100% on room air HEART: Regular rate and rhythm. No murmur heard. No
== END 2021-03-27 11:11 | disposition home or self-care (01) ==
PROVIDERS: Emergency Provider Registered Nurse
DX: J32.9 Chronic sinusitis, unspecified (principal); Z87.891 Personal history of nicotine dependence
CPT/HCPCS: 87081; 87880; 99213; G0463

== ENCOUNTER → 2022-03-05 14:13 | Outpatient (CLI) | payer OTHER, SELFPAY ==
--- NOTE | ~2022-03-05 | MM_ITS ---
EXAMINATION: MM screening [place]aya BI w ernesto HISTORY: Screening TECHNIQUE: Craniocaudal and mediolateral oblique 3-D tomosynthesis images were obtained and synthetic 2-D images were generated. CAD analysis was submitted and interpreted. COMPARISON: Comparison to multiple prior studies sequentially, with oldest reviewed study dated 05/09. BREAST PARENCHYMAL COMPOSITION: There are scattered areas of fibroglandular density. FINDINGS: There is no evidence of suspicious mass, calcification, or architectural distortion to sugg est malignancy in either breast. There has been no suspicious interval change. IMPRESSION: 1. No mammographic evidence of malignancy. 2. Recommend routine screening mammography in one year. BI-RADS Category 1: Negative Reviewed, dictated and finalized at location A.
== END ==
DX: Z12.31 Encounter for screening mammogram for malignant neoplasm of breast (principal)
CPT/HCPCS: 77063; 77067

== ENCOUNTER 2023-03-02 09:30 | Emergency (ER) | payer MEDICARE, OTHER, SELFPAY ==
[2023-03-02 09:44] VITALS: BP 148/77; PULSE 71; RESP 16; TEMP 36.3; O2SAT 99
--- NOTE | 2023-03-02 10:19 | ED.EXTPRO ---
HPI - Extremity Problem General Chief complaint: Extremity Injury, Lower Stated complaint: Right Foot Pain Time Seen by Provider: 03/02/23 10:07 Source: patient and RN notes reviewed Mode of arrival: ambulatory Limitations: no limitations History of Present Illness HPI Narrative: Patient presents today complaining of pain, redness, and swelling to the right 5th toe x2 weeks that has been progressively worsening. Patient got her toenails done at a salon 3 weeks ago. Denies drainage or injury. She has been cleaning with peroxide and using triple antibiotic ointment without relief. Related Data Home Medications Medication Instructions Recorded Confirmed ergocalciferol (vitamin D2) 1,250 1,250 mcg PO DAILY 03/27/21 03/02/23 mcg (50,000 unit) capsule levothyroxine 75 mcg tablet 75 mcg PO DAILY 03/27/21 03/02/23 omeprazole 40 mg capsule,delayed 40 mg PO DAILY 03/02/23 03/02/23 release Allergies Allergy/AdvReac Type Severity Reaction Status Date / Time No Known Allergies Allergy Verified 03/02/23 09:39 Review of Systems Review of Systems: CONSTITUTIONAL: Denies body aches, fever, chills, or sweats. EYES: Denies visual changes, redness, or discharge. ENT: Denies rhinorrhea, congestion, sore throat, or otalgia. CARDIOVASCULAR: Denies chest pain, palpitations, or edema. RESPIRATORY: Denies cough or dyspnea. GASTROINTESTINAL: Denies abdominal pain, nausea, vomiting, or diarrhea. GENITOURINARY: Denies dysuria or hematuria. SKIN: + swelling, redness, pain to the right 5th toe MUSCULOSKELETAL: Denies back pain, joint pain, or myalgia. NEUROLOGIC: Denies headache, numbness, tingling, or weakness. PSYCH: Denies depression or anxiety. [facility] Past Medical History Medical History Depression Herpes zoster Meningitis Sinusitis Surgical History Surgical History History of appendectomy Family History Family History Father Acute myocardial infarction Prostate carcinoma Other Diabetes mellitus Social History Social History Smoking status: Former smoker Alcohol intake: current Drinks per week: 0 Substance use: never Substance use type: does not use Gender identity (if verbalized by the patient): Female Sexual Orientation (if Verbalized by the Patient): Straight or Heterosexual Spiritual care concerns: No Comments At time of signature, I have reviewed and agree with nursing past medical, surgical, social and family history unless otherwise noted. Please see nursing chart for further information. There is no relevant family history pertinent to the presenting complaint Exam Narrative: GENERAL: Well-appearing, well-nourished, and in no acute distress. HEAD: Normocephalic, atraumatic. EYES: EOMI. No redness or drainage. Conjunctivae normal. ENT: Mucous membranes pink and moist. NECK: Normal AROM. CHEST: No respiratory distress. EXTREMITIES: Normal range of motion. No edema. Right 5th toe: Mild erythema and localized swelling to the cuticle and lateral nail fold with tenderness to this area. Distal sensation intact. Capillary refill normal. Full range of motion of the toe. No obvious drainage. SKIN: Warm, dry, no rash. Capillary refill normal. Normal skin turgor. NEURO: No focal deficits. Alert and oriented x3. Gait steady. PSYCH: Normal affect. No signs of depression or anxiety. Course Course Level of Care: Express Care Visit Vital Signs Vital signs: Vital Signs Temperature 97.4 F L 03/02/23 09:44 Pulse Rate 71 03/02/23 09:44 Respiratory Rate 16 03/02/23 09:44 Blood Pressure 148/77 H 03/02/23 09:44 Pulse Oximetry 99 03/02/23 09:44 Oxygen Delivery Room Air 03/02/23 09:44 Temperature 97.4 F L
== END 2023-03-02 10:32 | disposition home or self-care (01) ==
PROVIDERS: Emergency Provider Nurse Practitioner
DX: L60.0 Ingrowing nail (principal); Z87.891 Personal history of nicotine dependence
CPT/HCPCS: 99213; G0463

== ENCOUNTER 2023-06-25 19:39 | Emergency (ER) | payer MEDICARE, OTHER, SELFPAY ==
[2023-06-25 19:47] VITALS: BP 151/82; PULSE 69; RESP 16; TEMP 36.3; O2SAT 98
--- NOTE | 2023-06-25 20:04 | ED.GENADULT ---
HPI - General Adult General Chief complaint: Headache Stated complaint: headache Time Seen by Provider: 06/25/23 19:54 Source: patient and RN notes reviewed Mode of arrival: ambulatory Limitations: no limitations History of Present Illness HPI narrative: Patient presents today with a 2 day history of headache, congestion, postnasal drip, fatigue. Denies fever or cough. Reports she has been taking care of her son very closely after a recent surgery and her son called her today stating he has been diagnosed with influenza. She has been taking ibuprofen with some relief. Related Data Home Medications Medication Instructions Recorded Confirmed ergocalciferol (vitamin D2) 1,250 1,250 mcg PO DAILY 03/27/21 06/25/23 mcg (50,000 unit) capsule levothyroxine 75 mcg tablet 75 mcg PO DAILY 03/27/21 06/25/23 Allergies Allergy/AdvReac Type Severity Reaction Status Date / Time No Known Allergies Allergy Verified 06/25/23 19:45 Review of Systems Review of Systems: CONSTITUTIONAL: Denies body aches, fever, chills, or sweats.+ fatigue EYES: Denies visual changes, redness, or discharge. ENT: Denies rhinorrhea, sore throat, or otalgia.+ congestion, postnasal drip CARDIOVASCULAR: Denies chest pain, palpitations, or edema. RESPIRATORY: Denies cough or dyspnea. GASTROINTESTINAL: Denies abdominal pain, nausea, vomiting, or diarrhea. GENITOURINARY: Denies dysuria or hematuria. SKIN: Denies rash, itching, or wounds. MUSCULOSKELETAL: Denies back pain, joint pain, or myalgia. NEUROLOGIC: Denies numbness, tingling, or weakness.+ headache PSYCH: Denies depression or anxiety. [facility] Past Medical History Medical History Depression Herpes zoster Meningitis Sinusitis Surgical History Surgical History History of appendectomy Family History Family History Father Acute myocardial infarction Prostate carcinoma Other Diabetes mellitus Social History Social History Smoking status: Former smoker Alcohol intake: current Drinks per week: 0 Substance use: never Substance use type: does not use Gender identity (if verbalized by the patient): Female Sexual Orientation (if Verbalized by the Patient): Straight or Heterosexual Spiritual care concerns: No Comments At time of signature, I have reviewed and agree with nursing past medical, surgical, social and family history unless otherwise noted. Please see nursing chart for further information. There is no relevant family history pertinent to the presenting complaint Exam Narrative: GENERAL: Well-appearing, well-nourished, and in no acute distress. HEAD: Normocephalic, atraumatic. EYES: EOMI. No redness or drainage. Conjunctivae normal. ENT: Mucous membranes pink and moist. Nares congested. No rhinorrhea. TMs normal bilaterally. Throat normal. Uvula midline. NECK: Normal AROM. Supple. No lymphadenopathy. CHEST: No respiratory distress. Clear to auscultation. HEART: Regular rate and rhythm. No murmur appreciated. EXTREMITIES: Normal range of motion. No edema. SKIN: Warm, dry, no rash. Capillary refill normal. Normal skin turgor. NEURO: No focal deficits. Alert and oriented x3. Gait steady. PSYCH: Normal affect. No signs of depression or anxiety. Course Course Level of Care: Express Care Visit Vital Signs Vital signs: Vital Signs Temperature 97.3 F L 06/25/23 19:47 Pulse Rate 69 06/25/23 19:47 Respiratory Rate 16 06/25/23 19:47 Blood Pressure 151/82 H 06/25/23 19:47 Pulse Oximetry 98 06/25/23 19:47 Oxygen Delivery Room Air 06/25/23 19:47 Temperature 97.3 F L 06/25/23 19:47 Pulse Rate 69 06/25/23 19:47 Respiratory Rate 16 06/25/23 19:47 Blood Pressure 151/82 H
[2023-06-25 20:05] VITALS: BP 151/82; PULSE 69; RESP 16; TEMP 36.3; O2SAT 98
== END 2023-06-25 20:11 | disposition home or self-care (01) ==
PROVIDERS: Emergency Provider Nurse Practitioner
DX: R51.9 Headache, unspecified (principal); R09.89 Other specified symptoms and signs involving the circulatory and respiratory systems; R09.82 Postnasal drip; R53.83 Other fatigue; Z20.828 Contact with and (suspected) exposure to other viral communicable diseases; Z87.891 Personal history of nicotine dependence; Z86.61 Personal history of infections of the central nervous system
CPT/HCPCS: 87804; 99213; G0463

== ENCOUNTER 2024-01-20 13:33 | Outpatient (CLI) | payer MEDICARE, OTHER, SELFPAY ==
--- NOTE | ~2024-01-20 | MM_ITS ---
EXAMINATION: MM screening yaya BI w ernesto HISTORY: Screening mammogram TECHNIQUE: Craniocaudal and mediolateral oblique 3-D tomosynthesis images were obtained and synthetic 2-D images were generated. CAD analysis was submitted and interpreted. COMPARISON: 03/05/2022, 12/11/2020 bilateral screening mammogram examinations BREAST PARENCHYMAL COMPOSITION: There are scattered areas of fibroglandular density. FINDINGS: Stable mild fibroglandular asymmetry, more prominent on the left. Occasional bilateral [place] gn calcifications. There is no evidence of suspicious mass, calcification, or architectural distortio n to suggest malignancy in either breast. There has been no suspicious interval change. IMPRESSION: 1. No mammographic evidence of malignancy. 2. Recommend routine screening mammography in one year. BI-RADS Category 2: Benign finding(s). Reviewed, dictated and finalized at location B.
== END 2024-01-20 13:34 | disposition home or self-care (01) ==
LOC: ANHIMG 13:42
DX: Z12.31 Encounter for screening mammogram for malignant neoplasm of breast (principal)
CPT/HCPCS: 77063; 77067

== ENCOUNTER 2024-03-12 12:00 | Emergency (ER) | payer MEDICARE, OTHER, SELFPAY ==
[2024-03-12 12:22] VITALS: BP 133/78; PULSE 72; RESP 20; TEMP 36.2; O2SAT 98
--- NOTE | 2024-03-12 15:07 | ED.GENADULT ---
HPI - General Adult General Chief complaint: Eye Problems Stated complaint: eye infection Time Seen by Provider: 03/12/24 14:41 History of Present Illness HPI narrative: Patient is a 69-year-old female who presents ER with sinus issues. For over 2 weeks she has been having significant congestion. She has also been having headache with pressure in her left ear with muffled hearing. Her eye over last couple days has become irritated and injected. She has yellow and green mucus. She has not been on any antibiotics or steroids. Related Data Home Medications Medication Instructions Recorded Confirmed ergocalciferol (vitamin D2) 1,250 1,250 mcg PO DAILY 03/27/21 06/25/23 mcg (50,000 unit) capsule levothyroxine 75 mcg tablet 75 mcg PO DAILY 03/27/21 06/25/23 Allergies Allergy/AdvReac Type Severity Reaction Status Date / Time No Known Allergies Allergy Verified 03/12/24 12:27 Review of Systems Review of Systems: All systems reviewed & are unremarkable except as noted in HPI and below Constitutional: Constitutional: Reports chills and Denies fever(s) ENT: Denies dizziness, Reports nasal congestion and Reports sore throat Comments: Ear pressure Cardiovascular: Cardiovascular: Reports no additional cardiovascular complaints Respiratory: Respiratory: Denies chest congestion, Reports cough, Denies dyspnea and Denies wheezing PMFSH Past Medical History Medical History Depression Herpes zoster Meningitis Sinusitis Surgical History Surgical History History of appendectomy Family History Family History Father Acute myocardial infarction Prostate carcinoma Other Diabetes mellitus Social History Social History Smoking status: Former smoker Alcohol intake: current Drinks per week: 0 Substance use: never Substance use type: does not use Gender identity (if verbalized by the patient): Female Sexual Orientation (if Verbalized by the Patient): Straight or Heterosexual Spiritual care concerns: No Exam Narrative: GENERAL: Well-appearing, well-nourished, and in no acute distress. HEAD: Normocephalic, atraumatic. EYES: PERRL and EOMI. Scleral injection and conjunctival injection left eye. ENT: Mucous membranes moist. Normal TMs bilaterally. Ear canals free of cerumen. CHEST: Clear to auscultation. No respiratory distress. HEART: Regular rate and rhythm. Normal peripheral pulses. NEURO: Alert and oriented x3. PSYCH: Normal mood and affect. Course Course Emergency Course: Discussed treatment plan. Discharged home. Vital Signs Vital signs: Vital Signs Temperature 97.1 F L 03/12/24 12:22 Pulse Rate 72 03/12/24 12:22 Respiratory Rate 20 03/12/24 12:22 Blood Pressure 133/78 03/12/24 12:22 Pulse Oximetry 98 03/12/24 12:22 Oxygen Delivery Room Air 03/12/24 12:22 Temperature 97.1 F L 03/12/24 12:22 Pulse Rate 72 03/12/24 12:22 Respiratory Rate 20 03/12/24 12:22 Blood Pressure 133/78 03/12/24 12:22 Pulse Oximetry 98 03/12/24 12:22 Oxygen Delivery Room Air 03/12/24 12:22 Medical Decision Making Vital Signs Vital Signs: Vital Signs Temperature 97.1 F L 03/12/24 12:22 Pulse Rate 72 03/12/24 12:22 Respiratory Rate 20 03/12/24 12:22 Blood Pressure 133/78 03/12/24 12:22 Pulse Oximetry 98 03/12/24 12:22 Oxygen Delivery Room Air 03/12/24 12:22 Temperature 97.1 F L 03/12/24 12:22 Pulse Rate 72 03/12/24 12:22 Respiratory Rate 03/12/24 12:22 Blood Pressure 133/78 03/12/24 12:22 Pulse Oximetry 98 03/12/24 12:22 Oxygen Delivery Room Air 03/12/24 12:22 Discharge Plan Discharge Clinical Impression: Sinusitis Patient Disposition: Home, S
== END 2024-03-12 15:19 | disposition home or self-care (01) ==
PROVIDERS: Emergency Provider Emergency Medicine
DX: J32.9 Chronic sinusitis, unspecified (principal); Z87.891 Personal history of nicotine dependence; Z79.899 Other long term (current) drug therapy
CPT/HCPCS: 99283

== ENCOUNTER 2025-01-24 10:26 | Outpatient (CLI) | payer MEDICARE, OTHER, SELFPAY ==
--- NOTE | ~2025-01-24 | MM_ITS ---
EXAMINATION: MM screening yaya BI w ernesto HISTORY: Screening TECHNIQUE: Craniocaudal and mediolateral oblique 3-D tomosynthesis images were obtained and synthetic 2-D images were generated. CAD analysis was submitted and interpreted. COMPARISON: Comparison to multiple prior studies sequentially, with oldest reviewed study dated 01/13. BREAST PARENCHYMAL COMPOSITION: Not dense: There are scattered areas of fibroglandular density. FINDINGS: There is no evidence of suspicious mass, calcification, or architectural distortion to sugg est malignancy in either breast. There has been no suspicious interval change. IMPRESSION: 1. No mammographic evidence of malignancy. 2. Recommend routine screening mammography in one year. BI-RADS Category 1: Negative Reviewed, dictated and finalized at location A.
--- OUTSIDE RECORDS SUMMARY | 2025-01-24 10:32 | XMS_ITS | Clinical Summary ---
Author Organization [facility] Address [address] [place] [address] Care Team Providers Care Product Representative Name Role Phone Bharathi Harper MD Primary Care Provider [phone] Delicia Kay MD Unavailable [phone] Bharathi Harper MD Unavailable [phone] Source Comments [facility],non-owned Affiliates and Associated Physician Practices is amultiple site organization consisting of ambulatory clinics and hospital sitesin [place], [place], [place] and [place]. This disclosure is being madepursuant to the Care Everywhere program and may not contain all information available regarding this patient. Last updated 18.[facility] Allergies No known active allergies Medications * Be aware that medications may not be up to date on this document. Alwaysverify current medications with the patient. metroNIDAZOLE (METROGEL) 0.75 % gel Apply 0.75 % to affected area as directed 8 Active Emeigh-3 1000 MG Take 1 capsule by mouth once daily Active levothyroxine (SYNTHROID) 75 MCG tablet Take 1 (one) tablet by mouth daily before breakfast 0 Active CINNAMON PO Take 2,000 mg by mouth once daily Active cetirizine (ZyrTEC) 10 MG tablet Take 1 (one) tablet by mouth once daily 90 tablet 3 2 Active fluticasone propionate (Flonase) 50 MCG/ACT nasal spray Hollister 2 (two) sprays into each nostril once daily 3 Each 3 2 Active Krill Oil 500 MG CAPS Take 1 capsule by mouth once daily Active CALCIUM CITRATE PO Take 1,300 mg by mouth once daily Active MAGNESIUM GLYCINATE PO Take 600 mg by mouth once daily Active Vitamin D-Vitamin K (VITAMIN K2-VITAMIN D3 PO) Take 1 tablet by mouth once daily 1000 iu vitamin D; 45mcg Vitamin K Active Vitamin E 180 MG (400 UNIT) CAPS Take 1 (one) capsule by mouth once daily Active meclizine (Antivert) 25 MG tabletIndicatio ns:Vertigo Take 1 (one) tablet by mouth 2 times daily Reasons: Sensation of Spinning or Whirling 30 tablet 2 Active ibuprofen (Motrin) 400 MG tabletIndicatio ns:Osteoarthrit is Take 1 (one) tablet by mouth every 6 hours as needed for Pain Reasons: Joint Damage causing Pain and Loss of Function 100 tablet 3 3 Active metFORMIN (Glucophage) 500 MG tablet Take 1 (one) tablet by mouth 2 times daily with morning and evening meal 4 Active Lancets (ePark SystemsTOUCH DELICA PLUS 33G EXTRA FINE LANCET) Take 1 Each by mouth every morning 4 Active [employer] Blood Glucose Test test strip Use 1 (one) strip once daily 4 Active coenzyme Q10 100 MG capsule Take 100 (one hundred) mg by mouth once daily Active Blood Glucose Monitoring Suppl (Light Blue OpticsTouch Verio Flex System) w/Device KIT Use 1 kit every morning 4 Active omeprazole (PriLOSEC) 40 MG capsule Take 1 (one) capsule by mouth once daily 100 capsule 3 5 Active vitamin D, ergocalciferol, (Drisdol) 1.25 MG (44406 UT) capsule Take 1 (one) capsule by mouth every 7 days 12 capsule 3 5 Active Active Problems Problem Noted Date Diagnosed Date Primary insomnia 08/02/2018 Obstructive sleep apnea syndrome 01/07/2016 Overview (05/04/2017): Overview: Obstructive sleep apnea Anxiety 01/07/2016 Overview (05/04/2017): Overview: Anxiety as acute reaction to exceptional stress Bursitis, hip 12/10/2015 Depression 08/19/2015 Hypovitaminosis D 08/25/2012 Hyperlipidemia 08/25/2012 Glaucoma 08/06/2008 Screening for condition 08/06/2008 Overview (05/29/2015): Adult Abstraction Problem List Screening Dexa Scan (Bone Density): Result: Not avail in chart Date: Not avail in chart Colonoscopy: Result: Not avail in chart Date: Not avail in chart Pap Smear: Result: Not avail in chart Date: Not avail in chart Mammogram: Result: Negative Date: 08/10/07 Hypothyroidism Osteopenia after menopause Gastroesophageal reflux disease without esophagi tis Immunizations Immunization Administration Dates Next Due Covid Moderna primary monova lent 12+ yr 0.5mL 01/06/2021,12/09/2020 INFLUENZA VACCINE 06/06/2017,06/02/2015,07/01/20 14 INFLUENZA VACCINE, ADJUVANTE D, QUADR. (FLUAD QUADRIVALENT; 65Y+) (AIIV4) 08/09/2022 MODERNA SARS-COV-2 COVID-19 VACCINE 0.25ML 09/09 PNEUMOCOCCAL PCV20 CONJ VAC IM 08/31/2023 TDAP (7yrs+) 12/02/2014 TDAP, HISTORIC VACCINE 01/01/2023 Zoster Hzv Vacc Recombinant Inj Im 09/30/2020, iNFLUENZA VACCINE, RECOM-MADDEN, QUADR. (FLUBLOCK QUADRIVALENT; 18Y+) (RIV4) 06/24/2020 Family History Medical History Relation Name Comments Hypertension Brother Diabetes Maternal Uncle Arthritis Mother Hypercholesterolemia Mother Cancer - Breast Neg Hx Relation Name Status Comments Brother Maternal Uncle Mother Social History Tobacco Use Types Packs/Day Years Used Date Smoking Tobacco: Former Cigarettes 0.5 12 Smokeless Tobacco: Never Tobacco Cessation:Counseling Given: Not Answered Comments:quit 15+ years ago Alcohol Use Standard Drinks/Week Comments Yes 0 (1 standard drink = 0.6 oz pur e alcohol) SOCIALLY PHQ-2 Answer Date Recorded Patient Health Questionnaire-2 Score 0 09/13/2024 Comments No Sex and Gender Information Value Date Recorded Sex Assigned at Female 08/31/2024 1:52 PM [facility] Legal Sex Female 5:29 AM [facility] Gender Identity Female 08/31/2024 1:52 PM [facility] Sexual Orientation Not on file 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 Not on file Not on file Not on file Last Filed Vital Signs Vital Sign Reading Time Taken Comments Blood Pressure 120/70 08/31/2023 11:26 AM [facility] Pulse 73 09/13/2024 10:58 AM [facility] Temperature 36.3 C (97.4 F) 09/13/2024 10:58 AM [facility] Respiratory Rate 13 09/13/2024 10:58 AM [facility] Oxygen Saturation 97% 09/13/2024 10:58 AM [facility] Inhaled Oxygen Concentration - - Weight 68.5 kg (151 lb) 09/13/2024 10:58 AM [facility] Height 166.4 cm (5' 5.5) 08/31/2023 11:26 AM CS T measured Body Mass Index 24.75 08/31/2023 11:26 AM [facility] Plan of Treatment Health Maintenance Due Date Last Done Comments COLOGUARD (AGES 45-75) - COLON CA SCREENING 1957 CT COLONOGRAPHY - COLON CA SCREENING 1955 FIT - COLON CA SCREENING 1957 FLEX SIG - COLON CA SCREENING 1955 HEPATITIS C SCREENING 02/12/1975 COVID-19 VACCINE ( season) 2024 09/09/2021, 01/06/2021, 12/09/2020 BONE DENSITY TESTING 04/21/2025 04/21/2023, 04/22/2021, 05/03/2020 (Done Outside Per Report), Additional history exists INFLUENZA VACCINE (Season Ended) 2025 08/09/2022, 06/24/2020, 06/06/2017, Additional history exists MAMMOGRAM 01/19/2026 01/20/2024, 07/0 03/2022, 12/11/2020, Additional history exists COLON MONITORING 01/29/2026 01/30/2016 COLONOSCOPY - COLON CA SCREENING 01/29/2026 01/30/2016, 01/30/2016 Colorectal Cancer Screening 01/29/2026 LIPID TESTING 01/15/2029 01/16/2024, 07/29, 10/15/2022, Additional history exists Respiratory Syncytial Virus (RSV) Vaccine Pt: or over 60 yrs (1 - 1-dose 75+ series) 02/17/2032 DTAP/TDAP/TD VACCINES (3 - Td or Tdap) 01/01/2033 01/01/2023, 12/02/2014 ZOSTER VACCINE Completed 09/30/2020, 08/20/2020 PNEUMOCOCCAL VACCINE 50+ Completed 08/31/2023 DEPRESSION SCREENING Completed 09/13/2024, 02/23/2023, 08/09/2022, Additional history exists MEDICARE AWV CALENDAR YEAR Completed 09/13/2024, 08/31/2023, 08/09/2022 HEPATITIS B VACCINE Aged Out No longe r eligible based on patient's age to complete this topic HIB VACCINE Aged Out No longer eligi ble based on patient's age to complete this topic HPV VACCINE Aged Out No longer eligi ble based on patient's age to complete this topic MENINGOCOCCAL (Group B) VACCINE SHARED DECISION-MAKING Aged Out No longer eligible based on patient's age to complete this topic MENINGOCOCCAL GROUPS A/C/Y/W VACCINE Aged Out No longer eligible based on patient's age to complete this topic Procedures Procedure Name Priority Date/Time Associated Diagnosis Comments MAMMOGRAM 01/20/2024 LIPID PROFILE (EXTERAL RESULT ENTRY) Routine 08/16/2023 10:21 AM [facility] DEXA BONE DENSITY 2 SITES Routine 01/13/2017 Osteopenia ENDOSCOPY, COLON, SCREENING Routine 01/30/2016 from Last 3 Months or Most Recently Relevant to Health Maintenance Results * MAMMOGRAM (01/20/2024) Anatomical Region Laterality Modality Other 01/20/2024 Narrative 01/20/2024 Ordered by an unspecified provider. us Scanned Document SCANNING ONLY Final Result * (ABNORMAL) LIPID PROFILE (EXTERAL RESULT ENTRY) (08/16/2023 10:21 AM [facility]) Cholesterol (EXTERNAL RESULT) 225(H) mg/dL Triglycerides (EXTERNAL RESULT) 148 mg/dL HDL (EXTERNAL RESULT) 49 mg/dL LDL (EXTERNAL RESULT) 149(H) mg/dL VLDL (EXTERNAL RESULT) 27 mg/dL Chol HDL Ratio (External Result) NA Blood BLOOD SPECIMEN / Unknown 08/16/2023 10:21 AM [facility] Narrative Maria Teresa Richards, BREAD WRAPPING MACHINE FEEDER - 08/17/2023 1:06 AM [facility] The accuracy and reliability of the test results are authenticated by the outside CLIA certified lab, and not by the [facility] Shampoo Assistant. The full result should be confirmed by review of the scanned report from the outside CLIA certified lab that performed the test before clinical decisions are rendered based on these results. Exercise caution when tracking results measured by different laboratories that have not been subject to cross validation studies. us Historical Provider LAB - CHEMISTRY ORDERABLE S Final Result * DEXA BONE DENSITY 2 SITES (01/13/2017) Anatomical Region Laterality Modality Other us Bharathi Harper MD DEXA ORDERABLES Final Result * ENDOSCOPY, COLON, SCREENING (01/30/2016) us Efren Villanueva MD GI PROCEDURE ORDERABLES Final Result from Last 3 Months or Most Recently Relevant to Health Maintenance Insurance [employer] MEDICARE ADV HMO & PPO Care Teams Product Representative Relationship Specialty Start Date End Date Bharathi Harper MD [address] [place] [address] PCP - General 04/16/08 Bharathi Harper MD [address] [place] [address] PCP - Attributed-[employer] [place] STL 08/29/24 [place] [address] [place] [id number] Endocrinology 09/10/20
--- OUTSIDE RECORDS SUMMARY | 2025-01-24 10:32 | XMS_ITS | Clinical Summary ---
Author Organization [facility] Address [address] [place] [id number] Care Team Providers Care Contact Lens Assistant Name Role Phone Bharathi Harper MD Primary Care Provider [phone] Allergies No known active allergies Medications aspirin (GALILEO) 81 mg Tablet take 1 tablet (81MG) by ORAL route every day. 07/02/2009 Active omeprazole (PRILOSEC) 40 mg Capsule, Delayed Release(E.C.) Take 40 mg by mouth. 08/04/2015 Active fluticasone (FLONASE) 50 mcg/spray Bob White, Suspension 2 Sprays. 08/19/2015 Active levothyroxine 25 mcg tablet Take 25 mcg by mouth. 10/06/2018 Active omega-3 acid ethyl esters (OMACOR,LOVAZA) 1 gram Capsule Take 1 Capsule by mouth. Active zolpidem (AMBIEN) 5 mg tablet TAKE 1 TABLET BY MOUTH NIGHTLY NEEDED FOR INSOMNIA. 02/27/2019 Active vitamin B complex (B COMPLEX 50 ORAL) Active vitamin E 400 unit capsule 1 cap(s) Active magnesium oxide 200 mg magnesium Tablet, Chewable Active Ascorbic Acid-Bioflavono ids 1,000-100 mg Tablet Sustained Release Take 1 Tablet by mouth. Active cetirizine (ZyrTEC) 10 mg tablet TAKE 1 TABLET BY MOUTH EVERY DAY 02/27/2019 Active folic acid (FOLVITE) 1 mg tablet Take 1 mg by mouth. 03/08/2018 Active metroNIDAZOLE (METROGEL) 0.75 % Gel Apply 0.75 % to affected area. 09/16/2017 Active coenzyme Q10 100 mg Capsule Take 1 Capsule by mouth. Active sertraline (ZOLOFT) 25 mg tablet TAKE 1 TABLET BY MOUTH EVERY DAY 06/04/2019 Active Active Problems No known active problems Family History Medical History Relation Name Comments Heart Attack Father Alzheimer's Disease Mother Glaucoma Mother High Cholesterol Mother Colon Cancer Neg Hx Relation Name Status Comments Brother Alive Father Maternal Grandfather Maternal Grandmother Mother Paternal Grandfather Paternal Grandmother Sister Alive Son Alive Social History Tobacco Use Types Packs/Day Years Used Date Smoking Tobacco: Former Cigarettes Smokeless Tobacco: Never Alcohol Use Standard Drinks/Week Comments Yes 0 (1 standard drink = 0.6 oz pur e alcohol) socially Comments No Sex and Gender Information Value Date Recorded Sex Assigned at Not on file 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 Gender Identity Not on file Sexual Orientation Not on file Last Filed Vital Signs Vital Sign Reading Time Taken Comments Blood Pressure 147/81 03/28/2021 3:59 PM CDT Pulse 81 03/28/2021 3:59 PM CDT Temperature 36.5 C (97.7 F) 03/28/2021 3:59 PM CDT Respiratory Rate 18 03/28/2021 3:59 PM CDT Oxygen Saturation 97% 03/28/2021 3:59 PM CDT Inhaled Oxygen Concentration - - Weight 70.3 kg (155 lb) 03/28/2021 3:59 PM CDT Height 166.4 cm (5' 5.5) 03/28/2021 3:59 PM CDT Body Mass Index 25.4 03/28/2021 3:59 PM CDT Plan of Treatment Health Maintenance Due Date Last Done Comments DTAP/TDAP/TD VACCINES (1 - Tdap) 02/17/1976 FIT-DNA Q 3 years 2002 FIT/FOBT Q 1 year 2002 Flex Sig/CT Colonography Q 5 years 2002 PNEUMOCOCCAL VACCINE 50+ YEA RS (1 of 1 - PCV) 2007 ZOSTER VACCINE (1 of 2) 2007 BREAST CANCER SCREENING 02/28/2020 02/27/2019 INFLUENZA VACCINE (#1) 2024 OSTEOPOROSIS SCREENING 04/20/2024 04/20/2019 COLORECTAL SCREENING 01/29/2026 01/30/2016, 01/30/20 16 Colorectal Cancer Screening 01/29/2026 RSV VACCINE (60+ or ) (1 - 1-dose 75+ series) 02/17/2032 Procedures Procedure Name Priority Date/Time Associated Diagnosis Comments XR DEXA BONE DENSITY AXIAL 1 OR MORE SITES Routine 04/20/2019 MAMMO SCREENING BILAT Routine 02/27/2019 ENDOSCOPY, COLON, DIAGNOSTIC Routine 01/30/2016 from Last 3 Months or Most Recently Relevant to Health Maintenance Results * XR DEXA BONE DENSITY AXIAL 1 OR MORE SITES (04/20/2019) Anatomical Region Laterality Modality Other us Abstract Provider DIAGNOSTIC IMAGING ORDERABLES Edited Result - Final * MAMMO SCREENING BILAT (02/27/2019) Anatomical Region Laterality Modality Breast Bilateral Mammography us Abstract Provider MAMMO ORDERABLES Final Result * ENDOSCOPY, COLON, DIAGNOSTIC (01/30/2016) us Efren Villanueva MD GI PROCEDURE ORDERABLES Final Result Performing Organization Address City/State/[facility] Co de Phone Number [facility] from Last 3 Months or Most Recently Relevant to Health Maintenance Insurance [facility] Yorxs O OPEN ACCESS Yorxs OPEN ACCESS Advance Directives For more information, please contact: [phone] * Full Code (Latest Code Status on File) Date Activated Date Inactivated Comments 01/30/2016 7:01 AM 01/30/2016 11:44 AM Care Teams Contact Lens Assistant Relationship Specialty Start Date End Date Bharathi Harper MD PCP - General 03/27/21
--- OUTSIDE RECORDS SUMMARY | 2025-01-24 10:32 | XMS_ITS | Patient Health Record ---
Author Organization [facility] Address [address] [place], [place] [id number] Care Team Providers Care Reading Instructor Name Role Phone DAVONTE GALLEGOS Unavailable [phone] Bharathi Harper Unavailable Unavailable Allergies No Known Allergies Reason For Referral No Information Social History Tobacco Use: Social History Observation Description Date Details (start date - stop date) Former Smoker NA - NA Tobacco Use/Smoking Question Answer Notes Tobacco use: former smoker Plan Of Treatment No Information Insurance Providers Payer Name Payer Address Payer Phone Subscriber Number Group Number Insured Name Patient Relationship to Insured Coverage Start Date Coverage End Date [employer] [address] [place] [phone] [id number] DESMOND GALICIA Self - patient is the insured [facility] ATTN CLAIMS [address] [place] [address] [id number] DESMOND GALICIA Self - patient is the insured Medical (General) History Medical History History ICD Code Sleep apnea Thyroid Disease
--- OUTSIDE RECORDS SUMMARY | 2025-01-24 10:32 | XMS_ITS | Clinical Summary ---
Author Organization [facility] Address [address] [place] [address] Care Team Providers Care Jai Alai Player Name Role Phone Unavailable Primary Care Provider Unavailabl e Social History Tobacco Use Types Packs/Day Years Used Date Smoking Tobacco: Never Assessed Comments Unknown Sex and Gender Information Value Date Recorded Sex Assigned at Not on file Legal Sex Female 12:28 PM [employer] Gender Identity Not on file Sexual Orientation Not on file Plan of Treatment Health Maintenance Due Date Last Done Comments DEXA Bone Density 1955 Hepatitis C Virus (HCV) Screening 1955 TdaP Immunization 1955 Colonoscopy 2002 Colorectal Cancer Screening 2002 Cologuard 2007 Immunochemical Fecal Occult Blood 2007 Mammogram 2007 Pneumococcal Immunization (5 0+ years) (1 of 1 - PCV) 2007 Zoster Immunization (1 of 2) 2007 Influenza Immunization (#1) 2024 SARS-COV-2 Immunization ( - 2023- season) 2024 Respiratory Syncytial Virus (RSV) Immunization (Adult) (1 - 1-dose 75+ series) 02/17/2032 Hepatitis B Immunization Aged Out No longer eligible based on patient's age to complete this topic Meningococcal Immunization (ACWY) Aged Out No longer eligible based on patient's age to complete this topic Rotavirus Immunization Aged Out No lo nger eligible based on patient's age to complete this topic
== END 2025-01-24 10:27 | disposition home or self-care (01) ==
LOC: ANHIMG 10:28
PROVIDERS: Visit Provider Nurse Practitioner
DX: Z12.31 Encounter for screening mammogram for malignant neoplasm of breast (principal)
CPT/HCPCS: 77063; 77067

== ENCOUNTER 2025-03-12 15:00 | Outpatient (RCR) | payer MEDICARE, OTHER, SELFPAY ==
--- NOTE | 2025-01-16 11:48 | OPREHPOC ---
Outpatient Therapy Plan of Care This is a Multidisciplinary Plan of Care that may contain components documented by all disciplines (PT, OT, and ST.) PT Problem 1 PT Problem #1 Knowledge Deficit PT Goal 1 Goal / Goal Update 1. Patient will perform independent HEP 2. Patient will verbalize urge suppression strategies Target Visit 2 PT Problem 2 PT Problem #2 Impaired Strength PT Goal 1 Goal / Goal Update 1. Patient will demonstrate 10 second pelvic floor contraction to reduce incontinence 2. Patient will contact abdominal muscles and hold with sequential march Target Visit 3 PT Problem 3 PT Problem #3 Impaired Functional ADLs PT Goal 1 Goal / Goal Update 1. Patient will report no incontinence for 6 weeks 2. Patient will void no more than 8 times a day and 1 time at night Target Visit 3
--- NOTE | 2025-01-16 11:48 | PTOPEVAL1 ---
Assessment and note entered by Shayy Dee DPT Evaluation Information Assessment Status Evaluation ICD-10 Condition Codes (PT) Weakness R53.1,Stress incontinence N39.3 Subjective Information Pt reports intermittent stress incontinence. Has had moments of significant volume and has had to change clothes. Less than once a month on average. Typically occurs while laughing. No pain with urination. Voids about 10 times a day, sometimes up to 2-3 times at night but reports that has gotten better. Has sometimes worn pads just in case but typically is not. BM daily and reports no pain, does have constipation but has been taking fiber and it is helping. Denies history of pelvic pain but does think her uterus has dropped. Pt has been 2 times, 1 vaginal delivery with tearing. Reports when she was in her 30's she had many ovarian cysts removed but unsure if she had PCOS diagnosed. 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 Patient goal: be able to laugh without peeing Return to MD is not scheduled. Reported Pain Level Pain Score 0: Self Report Assessment PT Clinical Summary The patient is presenting to skilled therapy with a history of intermittent stress incontinence, with significant volume. She also reports increased urinary frequency and urgency. She presents with decreased pelvic floor endurance and decreased abdominal strength which are contributing to her symptoms. She will highly benefit from therapy to eliminate incontinence and to restore full function. Plan of Care Interventions Manual Therapy,Neuro Re-education,Patient/ Caregiver Education,Therapeutic Activities, Therapeutic Exercise PT Services Indicated Yes Treatment Frequency and 1 time every other week x 3 visits Duration These treatments will address the objective and functional deficits as defined above. The patient will be advanced safely and appropriately in order for the patient to progress towards his/her prior level of function. Additional exercises will be introduced and as well as a comprehensive home exercise program upon discharge, if needed, ?to ensure carryover of functional gains achieved in the clinic. This treatment plan has been reviewed and agreement upon by the patient.
--- NOTE | 2025-03-12 15:35 | OPREHPOC ---
Outpatient Therapy Plan of Care This is a Multidisciplinary Plan of Care that may contain components documented by all disciplines (PT, OT, and ST.) PT Problem 1 PT Problem #1 Knowledge Deficit PT Goal 1 Goal / Goal Update 1. Patient will perform independent HEP 2. Patient will verbalize urge suppression strategies Target Visit 2 Progress Met PT Problem 2 PT Problem #2 Impaired Strength PT Goal 1 Goal / Goal Update 1. Patient will demonstrate 10 second pelvic floor contraction to reduce incontinence 2. Patient will contact abdominal muscles and hold with sequential march Target Visit 3 Progress Met PT Problem 3 PT Problem #3 Impaired Functional ADLs PT Goal 1 Goal / Goal Update 1. Patient will report no incontinence for 6 weeks 2. Patient will void no more than 8 times a day and 1 time at night update 03/12/25 1. at least 3-4 weeks 2. met Target Visit 3 Progress Partially Met
--- NOTE | 2025-03-12 15:35 | PTOPDC ---
Assessment and note entered by Shayy Dee DPT Evaluation Information Assessment Status Discharge ICD-10 Condition Codes (PT) Weakness R53.1,Stress incontinence N39.3 Subjective Information Pt reports urinary incontinence 1 time a few weeks ago and was only a drop, coughed when she already needed to pee. Voiding 7-8 times a day and maybe 1 time at night. States she has been doing 50 reps of kegels at a time which seems to make it hard to relax to void. Reported Pain Level Pain Score 0: Self Report Assessment PT Clinical Summary The patient has made good progress in therapy and demonstrates improved pelvic floor endurance. She reports only 1 instance of incontinence several weeks ago and was a very small volume. Discussed final HEP with patient and due to progress plan to discharge at this time. Plan of Care PT Services Indicated No
== END 2025-03-12 16:38 | disposition home or self-care (01) ==
LOC: ANHPT 15:00
PROVIDERS: Visit Provider Nurse Practitioner
DX: N39.3 Stress incontinence (female) (male) (principal)
CPT/HCPCS: 97112; 97161; 97530